=== PATIENT | female | born 1940 | race Caucasian/White ===

== ENCOUNTER → 2016-08-05 | Outpatient (CLI) | payer OTHER, MEDICARE ==
[2016-08-05 17:49] LABS: BLOOD UREA NITROGEN 13 mg/dl (7-18); BUN/CREATININE RATIO 19.3 (10-20); CALCIUM 9.5 mg/dl (8.5-10.1); CARBON DIOXIDE 26 mmol/L (21-32); CHLORIDE 105 mmol/L (98-107); CREATININE 0.68 mg/dl (0.60-1.20); GLUCOSE 105 mg/dl (70-99); POTASSIUM 4.1 mmol/L (3.5-5.1); SODIUM 140 mmol/L (136-145)
[2016-08-05 17:52] LABS: CHOLESTEROL 284 mg/dl (0-200); CHOLESTEROL/HDL RATIO 4.3; HDL CHOLESTEROL 66 mg/dl; LDL CHOLESTEROL CALCULATED 189 mg/dl; TRIGLYCERIDES 144 mg/dl (0-150); VERY LOW DENSITY LIPOPROT CALC 29 mg/dl
== END | disposition home or self-care (01) ==
LOC: C.LABBFT 13:31
PROVIDERS: ATTEND Internal Medicine
DX: R60.0 Localized edema (principal); E78.5 Hyperlipidemia, unspecified

== ENCOUNTER → 2016-08-19 | Outpatient (CLI) | payer OTHER, MEDICARE ==
[2016-08-19 17:34] LABS: BASO % 0.9 %; BASO ABS # 0.05 K/uL (0-0.2); COMPLETE YES; EOS % 3.7 %; HEMATOCRIT 40.6 % (37-47); IG% 0.4 %; LYMPH % 28.2 %; LYMPH ABS # 1.61 K/uL (1.2-3.4); MEAN CELL VOLUME 84.1 fL (80-100); MEAN CORPUSCULAR HEMOGLOBIN 29.4 pg (25-34); MEAN PLATELET VOLUME 11.1 fL (7.4-10.4); MONO % 8.8 %; PLATELET COUNT 186 K/uL (130-400); RED BLOOD COUNT 4.83 M/uL (4.2-5.4)
[2016-08-19 17:49] LABS: ALT/SGPT 27 U/L (12-78); AST/SGOT 14 U/L (15-37); BLOOD UREA NITROGEN 16 mg/dl (7-18); BUN/CREATININE RATIO 24.5 (10-20); CALCIUM 9.2 mg/dl (8.5-10.1); CARBON DIOXIDE 29 mmol/L (21-32); CHLORIDE 105 mmol/L (98-107); CREATININE 0.65 mg/dl (0.60-1.20); GLUCOSE 95 mg/dl (70-99); SODIUM 140 mmol/L (136-145)
[2016-08-19 18:00] LABS: ALB/GLOB RATIO 1.3 (0.9-2); ALKALINE PHOSPHATASE 65 U/L (45-117)
[2016-08-20 06:03] LABS: ESTIMATED AVERAGE GLUCOSE 114 mg/dl; HA1C FLAG Normal (Normal)
== END | disposition home or self-care (01) ==
LOC: C.LABBFT 10:32
PROVIDERS: ATTEND Internal Medicine
DX: M25.50 Pain in unspecified joint (principal); R73.09 Other abnormal glucose

== ENCOUNTER → 2016-12-28 | Outpatient (CLI) | payer OTHER, MEDICARE ==
[2016-12-28 17:46] LABS: CHOLESTEROL/HDL RATIO 2.5
== END | disposition home or self-care (01) ==
LOC: C.LABBFT 11:42
PROVIDERS: ATTEND Physician Assistant Medical
DX: E78.5 Hyperlipidemia, unspecified (principal)

== ENCOUNTER 2017-05-16 11:32 | Emergency (ER) | payer OTHER, MEDICARE ==
[~2017-05-16] VITALS: Ht 162.6 cm; Wt 64.0 kg
[~2017-05-16 11:32] MED LIST: CALC600T9 PO; CYAN100020 PO; GARL500C5 PO; GLUC1CAP35 PO; HERBAL LAXATIVE PO; LACTCAP3 PO; MAGN400T6 PO; MULT-506 PO; OMEG10007 PO; POTASSIUM PO; SIME1CAP28 PO; TRAZ100T29 PO; VITA200C5 PO; ZNTT/150 PO; [UNRECOGNIZED DRUG - CODE] PO; [UNRECOGNIZED DRUG - CODE] PO; herbal laxative PO
[2017-05-16 11:36] VITALS: TEMP 36.4; Ht 162.6 cm; Wt 64.0 kg
[2017-05-16 12:10] LABS: BASO % 0.9 %; BASO ABS # 0.05 K/uL (0-0.2); COMPLETE YES; EOS % 2.9 %; HEMATOCRIT 42.4 % (37-47); IG% 0.2 %; LYMPH % 26.4 %; LYMPH ABS # 1.53 K/uL (1.2-3.4); MEAN CELL VOLUME 85.7 fL (80-100); MEAN CORPUSCULAR HEMOGLOBIN 29.3 pg (25-34); MEAN CORPUSCULAR HGB CONC 34.2 g/dl (32-36); MEAN PLATELET VOLUME 10.4 fL (7.4-10.4); NEUT % 60.6 %; PLATELET COUNT 189 K/uL (130-400); RED BLOOD COUNT 4.95 M/uL (4.2-5.4)
[2017-05-16 12:18] LABS: PROTHROMBIN TIME (PATIENT) 10.5 SECONDS (9.0-12.0)
[2017-05-16 12:29] LABS: BLOOD UREA NITROGEN 15 mg/dl (7-18); CALCIUM 9.8 mg/dl (8.5-10.1); CARBON DIOXIDE 28 mmol/L (21-32); CHLORIDE 105 mmol/L (98-107); GLUCOSE 99 mg/dl (70-99); POTASSIUM 3.9 mmol/L (3.5-5.1); SODIUM 140 mmol/L (136-145)
[2017-05-16] MEDS ORDERED: HERBAL LAXATIVE PO ×2 (12:32→12:41)
[2017-05-16] MEDS ORDERED: HYDR12.56 PO (12:32)
[2017-05-16] MEDS ORDERED: VITA1TAB7 PO (12:41)
[2017-05-16] MEDS ORDERED: TRAZ100T29 PO (12:41)
[2017-05-16] MEDS ORDERED: OMEG120013 PO (12:41)
[2017-05-16] MEDS ORDERED: LACTTAB7 PO (12:41)
[2017-05-16] MEDS ORDERED: MULT-506 PO (12:41)
[2017-05-16] MEDS ORDERED: ASCO500T3 PO (12:41)
[2017-05-16] MEDS ORDERED: MAGN400T6 PO (12:41)
[2017-05-16] MEDS ORDERED: POTA99TA PO (12:41)
[2017-05-16] MEDS ORDERED: GARL500T PO (12:41)
[2017-05-16] MEDS ORDERED: GLUC1CAP35 PEG (12:41)
[2017-05-16] MEDS ORDERED: CYAN10005 PO (12:41)
[2017-05-16] MEDS ORDERED: CHLO4TAB70 PO (12:41)
[2017-05-16] MEDS ORDERED: ZNTT/150 PO (12:41)
[2017-05-16] MEDS ORDERED: CALC-20 PO (12:41)
[2017-05-16] MEDS ORDERED: [UNRECOGNIZED DRUG - OTHER] PO (12:46)
[2017-05-16] MEDS ORDERED: ALUM-30 PO (12:46)
[2017-05-16] MEDS ORDERED: ASPI-390 PO (12:46)
[2017-05-16] MEDS ORDERED: SIME1CAP28 PO (12:46)
[2017-05-16] MEDS ORDERED: MELA5TAB19 PO (12:46)
[2017-05-16] MEDS ORDERED: CALC500C3 PO (12:46)
--- NOTE | 2017-05-16 14:25 | DIAGNOSTIC IMAGING REPORT ---
R VENOUS DOPP LOWER EXT UNILAT HISTORY: 77 years-old Female swelling rle acute swelling of the right lower extremity COMPARISON: None available TECHNIQUE: Multiple real-time sonographic images of the right lower extremity deep venous structures were obtained assessing grayscale appearance, color and spectral flow FINDINGS: There is normal flow, compressibility, augmentation and phasicity of the right lower extremity deep venous system. Incidental note is made of prominent lymph nodes within the right inguinal region measuring up to 10 mm in short axis, likely physiologic however nonspecific. IMPRESSION: No sonographic evidence of deep venous thrombosis. The above report was generated using voice recognition software. It may contain grammatical, syntax or spelling errors. Electronically signed by: Roberto Goldsmith M.D. 05/16/2017 2:23 PM Dictated Date/Time: 05/16/2017 2:22 PM
[2017-05-16 15:24] LABS: ALKALINE PHOSPHATASE 85 U/L (45-117); ALT/SGPT 41 U/L (12-78); AST/SGOT 35 U/L (15-37)
[2017-05-16] MEDS ORDERED: CEFTRIAXONE SOD INJ 1 GM ADDVIAL IV STA (16:18)
--- NOTE | 2017-05-16 16:21 | DIAGNOSTIC IMAGING REPORT ---
ANKLE BRACHIAL INDEX LIMITED CLINICAL HISTORY: 77 years-old Female presenting with rle swelling and erythema . TECHNIQUE: Ankle brachial indices were obtained. COMPARISON: None. FINDINGS: Brachial: Right: 156 mmHg. Left: 168 mmHg. Ankle (posterior tibial): Right: 156 mmHg. Left: 176 mmHg. Ankle (dorsalis pedis): Right: 158 mmHg. Left: 176 mmHg. Ankle/brachial index: Right: 0.93-0.94, Left: 1.0-1.05. Reference ranges: Normal FEMI 1.0-1.4; 0.9-0.99 borderline; less than 0.9 abnormal. IMPRESSION: Normal left ankle-brachial index. Borderline low right ankle-brachial index. Electronically signed by: Pedro Luis Owusu M.D. 05/16/2017 4:20 PM Dictated Date/Time: 05/16/2017 4:18 PM
[2017-05-16] MEDS ORDERED: OPTIRAY 320 IV PRN (16:30)
--- NOTE | 2017-05-16 17:02 | DIAGNOSTIC IMAGING REPORT ---
ABD/PELVIS IV CONTRAST ONLY CLINICAL HISTORY: 77 years-old Female presenting with swelling in RLE looking at venous system/phase please, right leg swelling and redness down to the knee began on Tuesday, history of recent spider bite . TECHNIQUE: Multidetector CT of the abdomen and pelvis was performed after the administration of intravenous contrast. IV contrast: 115 mL of Optiray 320. A dose lowering technique was used consistent with the principles of ALARA (as low as reasonably achievable). COMPARISON: 08/24/2007. CT DOSE (mGy.cm): The estimated cumulative dose is 287.65 mGy.cm. FINDINGS: Cigar Machine Feeder topogram: Unremarkable. Lung bases: Calcified granuloma in the lingula unchanged. Dependent groundglass and reticular opacities in a subpleural distribution at the lung bases, right greater than left increased from prior exam. Stable solid 2 mm nodule in the right middle lobe, unchanged since 2007. Normal heart size. No pericardial or pleural effusion. Liver: Normal morphology. Subcentimeter hypodensity in the left hepatic lobe too small to characterize but likely cyst or hamartoma. Patent hepatic vasculature. Biliary: No intrahepatic or extrahepatic biliary ductal dilatation. Normal gallbladder. Pancreas: Normal. Spleen: Multiple calcified granulomas in the spleen likely indicate prior granulomatous infection. Adrenal glands: Normal. Kidneys and ureters: Normal excretion bilaterally. No hydronephrosis. Well-defined hypodensity in the left kidney likely simple cysts. Bladder: Normal noncontrast appearance. Pelvic organs: Uterus surgically absent. No adnexal masses. Bowel: Limited diverticulosis of the sigmoid colon. Mild stool burden. Mild gaseous distention of small bowel without evidence of wall thickening or convincing transition point suggest bowel obstruction. Small bowel distention measures up to 2.9 cm (series 3 image 255). Distal ileum is decompressed. Dilated small bowel taper smoothly at both the upstream and downstream portions of the distended segments. Peritoneal cavity: No free fluid or intraperitoneal gas. Lymph nodes: No enlarged lymph nodes in the abdomen or pelvis. Vasculature: Atherosclerosis of the normal caliber abdominal aorta. IVC patent. Iliac veins patent bilaterally. Abdominal wall: Minimal asymmetric subcutaneous infiltration in the proximal right thigh comparison to the left. Musculoskeletal: Degenerative changes of the pubic symphysis and spine. IMPRESSION: 1. Patent vasculature without evidence of a venous thrombosis to the level of the common femoral veins. 2. Small bowel distention without convincing evidence of an obstruction. This could suggest ileus. 3. Dependent opacities at the lung bases could represent atelectasis or chronic aspiration among other etiologies. Electronically signed by: Pedro Luis Owusu M.D. 05/16/2017 5:01 PM Dictated Date/Time: 05/16/2017 4:51 PM
[2017-05-16] MEDS ORDERED: CEPH500C PO (17:23)
[2017-05-16 17:47] VITALS: BP 151/73; PULSE 67; O2SAT 95
--- NOTE | 2017-05-16 17:54 | EMERGENCY ROOM VISIT NOTE ---
History Report prepared by Shanta: Duy Keller Under the Supervision of: Dr. Earnest Ramirez D.O. First contact with patient: 11:38 Chief Complaint: LEG PAIN,LEG INJURY Stated Complaint: SWOLLEN LEG, FROM KNEE DOWN History of Present Illness The patient is a 77 year old female who presents to the Emergency Room with complaints of right leg swelling that began two days ago. This has never happened to her before. About 1 month ago, she had some swelling in a small area on her right osorio that developed redness before resolving. She has a history of right hip and knee problems for which she receives injections. Pt denies headache, change in vision, fevers, chest pain, shortness of breath, nausea, vomiting, diarrhea, leg pain, pain with urination, weakness, numbness, tingling, hematochezia, and melena. Patient denies swelling of calves, recent trips, history of immobilization or recent surgery, prior history of DVT, hemoptysis, history of malignancy, history of smoking, or control/ estrogen use. Source of History: patient Onset: 2 days ago Position: leg (right) Symptom Intensity: moderate Quality: other (Swelling) Timing: constant Associated Symptoms: No fevers, No chest pain, No SOB, No nausea, No vomiting, No abdominal pain, No melena, No diarrhea, No urinary symptoms Note: She denies any pain to her right leg. Review of Systems See HPI for pertinent positives & negatives. A total of 10 systems reviewed and were otherwise negative. Past Medical & Surgical Medical Problems: (1) GERD (gastroesophageal reflux disease) Family History Omitted secondary to the patient's age. Social History Smoking Status: Never Smoker Smokeless Tobacco Use: No Drug Use: none Occupation Status: retired Current/Historical Medications Scheduled Ascorbic Acid (Vitamin C), 500 MG PO DAILY Calcium Carbonate-Vitamin D (Calcium 600 + D), 1 TAB PO HS Cephalexin Monohydrate (Keflex), 500 MG PO TID Chlorpheniramine Maleate (Chlorpheniramine Maleate), 4 MG PO BID Cyanocobalamin (Vitamin B-12), 1,000 MCG PO DAILY Garlic (Garlic), 500 MG PO QPM Juuujobeowi-Twhapipsdcz-Bvr C- (Glucosamine Chondroitin), 1 CAP PEG QPM Lactobacillus (Acidophilus), 1 TAB PO QAM Magnesium Oxide (Mag-Ox), 400 MG PO HS Multivitamin (Multivitamin), 1 TAB PO DAILY [place]anna-3 Fatty Acids (Fish Oil), 1,200 MG PO QPM Potassium (Potassium), 99 MG PO QPM Ranitidine HCl (Zantac), 150 MG PO BID Vitamin E (Vitamin E), 200 UNITS PO BID [Herbal Laxative], 1 TAB PO DAILY [Herbal Laxative], 2 TABS PO HS Scheduled PRN Alum & Mag Hydrox-Simethicone (Mylanta), 1 DOSE PO DAILY PRN for GI Upset Ytspxjo-Gbayxjkswjlyc-Lvgtdgkt (Excedrin Migraine), 1 TAB PO UD PRN for Migraine Calcium Carbonate (Tums), 500 MG PO UD PRN for Heartburn Hydrochlorothiazide (Hctz), 12.5 MG PO DAILY PRN for EDEMA Melatonin (Melatonin), 5 MG PO HS PRN for Sleep Simethicone (Simethicone), 125 MG PO UD PRN for GAS Trazodone Hcl (Trazodone), 100 MG PO HS PRN for Sleep [Herbal Water Tablet], 1 DOSE PO UD PRN for UNDECIDED Allergies Coded Allergies: No Known Allergies (Unverified , 05/16/17) Physical Exam Vital Signs Date Time Temp Pulse Resp B/P (MAP) Pulse Ox O2 Delivery O2 Flow Rate FiO2 05/16/17 17:47 67 18 151/73 95 05/16/17 17:30 67 18 151/73 95 Room Air 05/16/17 15:29 62 18 167/72 97 Room Air 05/16/17 13:22 62 18 161/80 98 Room Air 05/16/17 11:36 36.4 72 20 172/95 95 Room Air Physical Exam GENERAL: Sitting up in bed, alert, well appearing, well nourished, no distress, non-toxic EYE EXAM: normal conjunctiva. OROPHARYNX: no exudate, no erythema, lips, buccal mucosa, and tongue normal and mucous membranes are moist NECK: supple, no nuchal rigidity, no adenopathy, non-tender LUNGS: Clear to auscultation. Normal chest wall mechanics HEART: no murmurs, S1 normal and S2 normal ABDOMEN: abdomen soft, non-tender, normo-active bowel sounds, no masses, no rebound or guarding. BACK: Back is symmetrical on inspection and there is no deformity, no midline tenderness, no CVA tenderness. UPPER EXTREMITIES: upper extremities are grossly normal. LOWER EXTREMITIES: Significant swelling and erythema to the RLE. DP 2/4. Gross sensation intact. Full ROM of all joints NEURO EXAM: Normal sensorium. Medical Decision & Procedures ER Provider Diagnostic Interpretation: Radiology results as stated below per my review and the radiologist's interpretation: R VENOUS DOPP LOWER EXT UNILAT HISTORY: 77 years-old Female swelling rle acute swelling of the right lower extremity COMPARISON: None available TECHNIQUE: Multiple real-time sonographic images of the right lower extremity deep venous structures were obtained assessing grayscale appearance, color and spectral flow FINDINGS: There is normal flow, compressibility, augmentation and phasicity of the right lower extremity deep venous system. Incidental note is made of prominent lymph nodes within the right inguinal region measuring up to 10 mm in short axis, likely physiologic however nonspecific. IMPRESSION: No sonographic evidence of deep venous thrombosis. The above report was generated using voice recognition software. It may contain grammatical, syntax or spelling errors. Electronically signed by: Roberto Goldsmith M.D. 05/16/2017 2:23 PM Dictated Date/Time: 05/16/2017 2:22 PM ANKLE BRACHIAL INDEX LIMITED CLINICAL HISTORY: 77 years-old Female presenting with rle swelling and erythema . TECHNIQUE: Ankle brachial indices were obtained. COMPARISON: None. FINDINGS: Brachial: Right: 156 mmHg. Left: 168 mmHg. Ankle (posterior tibial): Right: 156 mmHg. Left: 176 mmHg. Ankle (dorsalis pedis): Right: 158 mmHg. Left: 176 mmHg. Ankle/brachial index: Right: 0.93-0.94, Left: 1.0-1.05. Reference ranges: Normal FMEI 1.0-1.4; 0.9-0.99 borderline; less than 0.9 abnormal. IMPRESSION: Normal left ankle-brachial index. Borderline low right ankle-brachial index. Electronically signed by: Pedro Luis Owusu M.D. 05/16/2017 4:20 PM Dictated Date/Time: 05/16/2017 4:18 PM ABD/PELVIS IV CONTRAST ONLY CLINICAL HISTORY: 77 years-old Female presenting with swelling in RLE looking at venous system/phase please, right leg swelling and redness down to the knee began on Tuesday, history of recent spider bite . TECHNIQUE: Multidetector CT of the abdomen and pelvis was performed after the administration of intravenous contrast. IV contrast: 115 mL of Optiray 320. A dose lowering technique was used consistent with the principles of ALARA (as low as reasonably achievable). COMPARISON: 08/24/2007. CT DOSE (mGy.cm): The estimated cumulative dose is 287.65 mGy.cm. FINDINGS: [employer] Pip[employer] Supervisor topogram: Unremarkable. Lung bases: Calcified granuloma in the lingula unchanged. Dependent groundglass and reticular opacities in a subpleural distribution at the lung bases, right greater than left increased from prior exam. Stable solid 2 mm nodule in the right middle lobe, unchanged since 2007. Normal heart size. No pericardial or pleural effusion. Liver: Normal morphology. Subcentimeter hypodensity in the left hepatic lobe too small to characterize but likely cyst or hamartoma. Patent hepatic vasculature. Biliary: No intrahepatic or extrahepatic biliary ductal dilatation. Normal gallbladder. Pancreas: Normal. Spleen: Multiple calcified granulomas in the spleen likely indicate prior granulomatous infection. Adrenal glands: Normal. Kidneys and ureters: Normal excretion bilaterally. No hydronephrosis. Well-defined hypodensity in the left kidney likely simple cysts. Bladder: Normal noncontrast appearance. Pelvic organs: Uterus surgically absent. No adnexal masses. Bowel: Limited diverticulosis of the sigmoid colon. Mild stool burden. Mild gaseous distention of small bowel without evidence of wall thickening or convincing transition point suggest bowel obstruction. Small bowel distention measures up to 2.9 cm (series 3 image 255). Distal ileum is decompressed. Dilated small bowel taper smoothly at both the upstream and downstream portions of the distended segments. Peritoneal cavity: No free fluid or intraperitoneal gas. Lymph nodes: No enlarged lymph nodes in the abdomen or pelvis. Vasculature: Atherosclerosis of the normal caliber abdominal aorta. IVC patent. Iliac veins patent bilaterally. Abdominal wall: Minimal asymmetric subcutaneous infiltration in the proximal right thigh comparison to the left. Musculoskeletal: Degenerative changes of the pubic symphysis and spine. IMPRESSION: 1. Patent vasculature without evidence of a venous thrombosis to the level of the common femoral veins. 2. Small bowel distention without convincing evidence of an obstruction. This could suggest ileus. 3. Dependent opacities at the lung bases could represent atelectasis or chronic aspiration among other etiologies. Electronically signed by: Pedro Luis Owusu M.D. 05/16/2017 5:01 PM Dictated Date/Time: 05/16/2017 4:51 PM Laboratory Results 05/16/17 11:54 Red Blood Count 4.95, Mean Corpuscular Volume 85.7, Mean Corpuscular Hemoglobin 29.3, Mean Corpuscular Hemoglobin Concent 34.2, Mean Platelet Volume 10.4, Neutrophils (%) (Auto) 60.6, Lymphocytes (%) (Auto) 26.4, Monocytes (%) (Auto) 9.0, Eosinophils (%) (Auto) 2.9, Basophils (%) (Auto) 0.9, Neutrophils # (Auto) 3.52, Lymphocytes # (Auto) 1.53, Monocytes # (Auto) 0.52, Eosinophils # (Auto) 0.17, Basophils # (Auto) 0.05 05/16/17 11:54 Test 05/16/17 11:54 White Blood Count 5.80 K/uL (4.8-10.8) Red Blood Count 4.95 M/uL (4.2-5.4) Hemoglobin 14.5 g/dL (12.0-16.0) Hematocrit 42.4 % (37-47) Mean Corpuscular Volume 85.7 fL (80-100) Mean Corpuscular Hemoglobin 29.3 pg (25-34) Mean Corpuscular Hemoglobin Concent 34.2 g/dl (32-36) Platelet Count 189 K/uL (130-400) Mean Platelet Volume 10.4 fL (7.4-10.4) Neutrophils (%) (Auto) 60.6 % Lymphocytes (%) (Auto) 26.4 % Monocytes (%) (Auto) 9.0 % Eosinophils (%) (Auto) 2.9 % Basophils (%) (Auto) 0.9 % Neutrophils # (Auto) 3.52 K/uL (1.4-6.5) Lymphocytes # (Auto) 1.53 K/uL (1.2-3.4) Monocytes # (Auto) 0.52 K/uL (0.11-0.59) Eosinophils # (Auto) 0.17 K/uL (0-0.5) Basophils # (Auto) 0.05 K/uL (0-0.2) RDW Standard Deviation 48.8 fL (36.4-46.3) RDW Coefficient of Variation 15.4 % (11.5-14.5) Immature Granulocyte % (Auto) 0.2 % Immature Granulocyte # (Auto) 0.01 K/uL (0.00-0.02) Prothrombin Time 10.5 SECONDS (9.0-12.0) Prothromb Time International Ratio 1.0 (0.9-1.1) Anion Gap 7.0 mmol/L (3-11) Est Creatinine Clear Calc Drug Dose 60.0 ml/min Estimated GFR () 98.2 Estimated GFR (Non- 84.8 BUN/Creatinine Ratio 22.0 (10-20) Calcium Level 9.8 mg/dl (8.5-10.1) Total Bilirubin 0.4 mg/dl (0.2-1) Direct Bilirubin < 0.1 mg/dl (0-0.2) Aspartate Amino Transf (AST/SGOT) 35 U/L (15-37) Alanine Aminotransferase (ALT/SGPT) 41 U/L (12-78) Alkaline Phosphatase 85 U/L (45-117) Troponin I < 0.015 ng/ml (0-0.045) Total Protein 7.5 gm/dl (6.4-8.2) Albumin 3.6 gm/dl (3.4-5.0) Laboratory results per my review. Medications Administered Medications (Trade) Dose Ordered Sig/Sasha Route Start Time Stop Time Status Last Admin Dose Admin Ceftriaxone Sodium (Rocephin Inj) 1 gm NOW STAT IV 05/16/17 16:18 05/16/17 16:20 DC 05/16/17 16:51 1 GM ED Course ED COURSE: Vital signs were reviewed and showed hypertension. The patients medical record was reviewed The above diagnostic studies were performed and reviewed. ED treatments and interventions as stated above. 1138: The patient was evaluated in room C12B. A complete history and physical examination was performed. 1218: I attempted to reevaluate the patient at this time. She was at US. 1445: The patient's DP, PT, popliteal, and femoral pulses are all 2/4 by Doppler. 1618: Ordered Rocephin Inj 1 gm IV 1730: Upon reevaluation, the patient is resting. I discussed my findings with the patient and she understands and agrees with the treatment plan. Care management will set up an appoint for her with her PCP. Based on the patients age, coexisting illnesses, exam and lab findings the decision to treat as an outpatient was made. The patient remained stable while under my care. The patient appeared well at the time of discharge. Medical Decision Differential diagnosis: Etiologies such as DVT, musculoskeletal, infection, joint effusion, trauma, lymphedema, idiopathic, CHF, as well as others were entertained.. Patient is a 77-year-old female who presents to ER for swelling of the right lower extremity associated with mild erythema. Right leg is larger than left. Pulses are intact DP/PT/popliteal/femoral. Duplex was negative. FEMI greater than 90 on the right. CBC all BMP, LFTs, bilirubin and troponin was negative. INR was normal. With the swelling I did perform a CT of the abdomen or concern for possible iliac clot but this was negative as well. Then unremarkable venous and arterial studies placed patient on Keflex after a dose of IV Rocephin and discharged her to follow-up with PCP in 24-48 hours. Care management will assist concerning his appointment up. She has no chest pain or shortness of breath. Discussed with Pt concerning signs and symptoms to watch out for. Pt was instructed to follow up with their PCP and discussed with the patient their option to return to the ED at anytime for persistent or worsening symptoms. The appropriate anticipatory guidance and out-patient management, including indications for return to the emergency department, were explained at length to the patient and understood. Medication Reconcilliation Current Medication List: was personally reviewed by me Blood Pressure Screening Patient's blood pressure: Elevated blood pressure Blood pressure disposition: Elevated BP felt to be situational Impression Primary Impression: Leg swelling Additional Impression: Cellulitis Scribe Attestation The scribe's documentation has been prepared under my direction and personally reviewed by me in its entirety. I confirm that the note above accurately reflects all work, treatment, procedures, and medical decision making performed by me. Departure Information Dispostion Home / Self-Care Prescriptions Cephalexin Monohydrate (Keflex) 500 Mg Cap 500 MG PO TID for 7 Days, CAP Prov: Earnest Ramirez, 05/16/17 Referrals Shin Kearney M.D. Forms HOME CARE DOCUMENTATION FORM, IMPORTANT VISIT INFORMATION Patient Instructions Cellulitis - [facility] [place], ED Leg Swelling Unilateral, My [facility] [address] Additional Instructions Please follow up with your primary care doctor with in the next 24 hours. Any worsening of your symptoms, please return to the ED immediately. This includes any fevers greater than 100.4, worsening pain, chest pain, shortness breath, persistent nausea, vomiting, unable to eat or drink, or any other concerning signs or symptoms from your standpoint. Please take antibiotics as prescribed. Problem Qualifiers Additional Impression: Cellulitis Site of cellulitis: extremity Site of cellulitis of extremity: lower extremity Laterality: unspecified laterality Qualified Codes: L03.119 - Cellulitis of unspecified part of limb
== END 2017-05-16 17:47 | disposition home or self-care (01) ==
LOC: C.EDB 11:33 → C.EDC 17:47
DX: R22.42 Localized swelling, mass and lump, left lower limb (principal); L03.90 Cellulitis, unspecified; K21.9 Gastro-esophageal reflux disease without esophagitis; Z79.899 Other long term (current) drug therapy

== ENCOUNTER → 2017-05-18 | Outpatient (CLI) | payer OTHER, MEDICARE ==
[~2017-05-18] MED LIST changes: +ALUM-30 PO; +ASCO500T3 PO; +ASPI-390 PO; +CALC-20 PO; +CALC500C3 PO; -CALC600T9 PO; +CEPH500C PO; +CHLO4TAB70 PO; -CYAN100020 PO; +CYAN10005 PO; -GARL500C5 PO; +GARL500T PO; +GLUC1CAP35 PEG; -GLUC1CAP35 PO; +HYDR12.56 PO; -LACTCAP3 PO; +LACTTAB7 PO; +MELA5TAB19 PO; -OMEG10007 PO; +OMEG120013 PO; +POTA99TA PO; -POTASSIUM PO; +VITA1TAB7 PO; -VITA200C5 PO; -[UNRECOGNIZED DRUG - CODE] PO; -[UNRECOGNIZED DRUG - CODE] PO; +[UNRECOGNIZED DRUG - OTHER] PO; -herbal laxative PO
[2017-05-18 13:09] LABS: LYME DISEASE AB IGG POS (NEG)
[2017-05-18 13:10] LABS: LYME DISEASE AB IGM EQUIVOCAL (NEG)
== END | disposition home or self-care (01) ==
LOC: C.LABBFT 08:59
PROVIDERS: ATTEND Physician Assistant Medical
DX: L03.90 Cellulitis, unspecified (principal)

== ENCOUNTER 2021-12-22 01:14 | Observation (INO) ==
[2021-12-22] MEDS ORDERED: SODIUM CHLORIDE 0.9% 1000ML 1,000 ML IV SCH (01:30)
--- NOTE | 2021-12-22 01:53 | Emergency Department Note ---
History of Present Illness General Chief complaint: Dehydration Stated complaint: DEHYDRATED Time Seen by Provider: 12/22/21 01:26 History of Present Illness 81-year-old female presents emergency department with 1 day history of worsening leg cramps and decreased p.o. intake. Of note the patient started gabapentin last week. Patient states leg cramps decreased p.o. intake nausea. Patient states that she stopped taking the gabapentin due to the fact that she was getting all of the side effects listed on the sheet. Patient is with family denies any specific abdominal pain denies fever denies cough denies congestion. There are no other mitigating or alleviating factors. Denies any diarrhea Home Medications Medication Instructions Recorded Confirmed Type Lactobacillus acidophilus 1 tab PO QDD tab 04/12/18 12/22/21 History (Acidophilus) ascorbic acid (vitamin C) 500 mg 500 mg PO QDD 04/12/18 12/22/21 History tablet chlorpheniramine maleate 4 mg 4 mg PO TID tab 04/12/18 12/22/21 History tablet glucosamine-chondroitin 500 mg-400 1 cap PO QDD 04/12/18 12/22/21 History mg capsule magnesium oxide 400 mg (241.3 mg 400 mg PO HS tab 04/12/18 12/22/21 History magnesium) tablet mecobalamin (vitamin B12) 1,000 1,000 mcg PO QAM 04/12/18 12/22/21 History mcg disintegrating tablet,sublingual melatonin 5 mg tablet 10 mg PO HS 04/12/18 12/22/21 History multivitamin 1 tab PO QAM 04/12/18 12/22/21 History omega-3 fatty acids 1,250 mg 1,250 mg PO QDD 04/12/18 12/22/21 History capsule potassium 99 mg tablet 99 mg PO QDD 04/12/18 12/22/21 History simethicone 125 mg capsule 125 mg PO QDD 04/12/18 12/22/21 History vitamin E mixed 200 unit tablet 200 units PO QDD tab 04/12/18 12/22/21 History hydrochlorothiazide 12.5 mg capsule 12.5 mg PO DAILY PRN #30 cap 03/05/20 12/22/21 Rx naproxen 250 mg tablet 250 mg PO BIDM PRN 04/20/21 12/22/21 History Cranberry W/Vitamin C 1 tab PO QAM 12/22/21 12/22/21 History Herbal Water Pill 1 tab PO DAILY PRN 12/22/21 12/22/21 History acetaminophen 325 mg tablet 650 mg PO DIRECTED PRN 12/22/21 12/22/21 History (Tylenol) aluminum-mag hydroxide-simethicone 10 ml PO DIRECTED PRN 12/22/21 12/22/21 History 200 mg-200 mg-20 mg/5 mL oral susp [id number]-[id number] 250 1 tab PO DIRECTED PRN 12/22/21 12/22/21 History mg-250 mg-65 mg tablet (Excedrin Migraine) buspirone 10 mg tablet 10 mg PO BIDM 12/22/21 12/22/21 History calcium carbonate 300 mg (750 mg) 300 mg PO DIRECTED PRN 12/22/21 12/22/21 History chewable tablet (Tums) calcium carbonate 470 mg calcium 470 mg PO DIRECTED PRN 12/22/21 12/22/21 History (1,177 mg) chewable tablet herbal drugs 1 tab PO BIDM 12/22/21 12/22/21 History ibuprofen 200 mg tablet 200 mg PO DIRECTED PRN 12/22/21 12/22/21 History ibuprofen 200 mg tablet 200 mg PO BIDM 12/22/21 12/22/21 History omeprazole 20 mg capsule,delayed 20 mg PO QAM 12/22/21 12/22/21 History release oxymetazoline 0.05 % nasal spray 2 spray INTRANASAL AMHS 12/22/21 12/22/21 History (Afrin (oxymetazoline)) rosuvastatin 5 mg tablet 5 mg PO QAM 12/22/21 12/22/21 History trazodone 100 mg tablet 100 mg PO HS PRN 12/22/21 12/22/21 History Allergies Allergy/AdvReac Type Severity Reaction Status Date / Time No Known Allergies Allergy Verified 12/22/21 01:51 Past Med/Surg History Medical History Carpal tunnel syndrome of left wrist Dyslipidemia GERD (gastroesophageal reflux disease) Greater trochanteric bursitis of left hip History of gastric ulcer Hypertension Lumbar radicular pain Sacroiliitis Spinal stenosis of lumbar region Surgical History H/O: hysterectomy History of adenoidectomy History of tonsillectomy Family History Mother Breast cancer Aunt Breast cancer Brother Stroke Grandfather No problems noted. Grandfather Lung cancer Other Diabetes Denies family history of Ovarian cancer Prostate cancer Myocardial infarction Colorectal cancer Social History Smoking Status: Never smoker Second Hand Exposure: No; Hx Alcohol Use: No Hx Substance Use: No Preferred Language: Armenian Communication Ability: Effective Visual Impairment: Limited Hearing Ability: Use of Hearing Aid marital status: Current Living Situation: Alone current occupational status: retired current occupation: used to work as secretary administrative assistant Feels Safe at Home: Yes Childhood Exposure to Second-Hand Smoke: Yes (father and grandfather) caffeine: Yes during the past year weight has: remained stable Dental Care, Regularly: Yes Physical Activity Frequency: Daily Seatbelt Use: always Sunscreen Use: Yes Review of Systems A total of 10 systems reviewed and were otherwise negative Constitutional: + fatigue; no fever Cardiovascular: no chest pain Musculoskeletal: + myalgia Physical Exam Vital Signs Vital Signs - 24 hr 12/22/21 01:18 12/22/21 01:40 12/22/21 01:45 Temperature 36.5 C Temperature Source Temporal Artery Scan Pulse Rate 86 81 Pulse Rate [Apical] 79 Pulse Rhythm Regular Regular Pulse Rhythm [Apical] Regular Pulse Strength Normal Respiratory Rate 20 16 17 Respiratory Effort / Characteristics Non-Labored Spontaneous Non-Labored Respiratory Depth Normal Normal Respiratory Pattern Regular Regular Blood Pressure 127/73 Blood Pressure [Left Arm] 103/67 Blood Pressure Mean 91 Blood Pressure Mean [Left Arm] 79 Blood Pressure Position Sitting Blood Pressure Position [Left Arm] Lying Pulse Oximetry 97 96 97 Oxygen Delivery Method Room Air Room Air Room Air Sepsis Recent Fever Within 48 Hours No Sepsis New/Unexplained Change in Mental Status N/A Sepsis Action Taken by Nursing No Action Required 12/22/21 03:31 Temperature Temperature Source Pulse Rate Pulse Rate [Apical] 73 Pulse Rhythm Pulse Rhythm [Apical] Regular Pulse Strength Respiratory Rate 28 H Respiratory Effort / Characteristics Non-Labored Respiratory Depth Normal Respiratory Pattern Regular Blood Pressure Blood Pressure [Left Arm] 118/66 Blood Pressure Mean Blood Pressure Mean [Left Arm] 83 Blood Pressure Position Blood Pressure Position [Left Arm] Lying Pulse Oximetry 97 Oxygen Delivery Method Room Air Sepsis Recent Fever Within 48 Hours Sepsis New/Unexplained Change in Mental Status Sepsis Action Taken by Nursing VITAL SIGNS - Vital signs and nursing notes were reviewed. GENERAL - no acute distress. Communicates well with provider and answers qu estions appropriately. SKIN - Without rashes. HEAD - NC/AT. EYES - PERRL with EOMI bilaterally. Sclera anicteric. Palpebral conjunctiva pink and moist with no injection noted. EARS - No deformities of external structures noted on gross examination bilaterally. NOSE - Midline and without cyanosis. No epistaxis or purulent drainage noted. Septum midline without deviation or septal hematoma noted. MOUTH/OROPHARYNX - Without perioral cyanosis. Buccal mucosa pink and moist NECK - Neck with FROM. LUNGS - Chest wall symmetric without accessory muscle use, intercostals retractions, or central cyanosis. Normal vesicular breath sounds CTA B/L. No wheezes, rales, or rhonchi appreciated. CARDIAC - RRR with S1/S2. No murmur, rubs, or gallops appreciated. ABDOMEN - Abdominal contour soft without pulsations or visible masses. BS normoactive all four quadrants. No tenderness, palpable masses, hepato splenomegaly, or ascites noted. EXTREMITIES - No clubbing or peripheral cyanosis. Trace b/l le edema; +5/5 strength noted in UE/LE bilaterally. NEUROLOGIC - Cranial nerves II through XII grossly intact. PSYCH - A&Ox3 and cooperates fully with examiner. Pt is very pleasant and interacts well with examiner. Course Reevaluation(s) Reevaluation #1: Patient is resting in no distress when I discussed the evaluation with the patient and family at bedside she stated that she was on doxycycline that st arted on December 18. Patient is a electrical assembly supervisor she has taken a lot of ticks off approximately 5-6 in the past few months. Time: 05:15 Reevaluation #2: Case discussed with the [facility] hospitalist for admission Time: 05:15 Administered Medications Azithromycin 500 mg/ Dextrose 255 mls @ 125 mls/hr IV ONE ONE Stop: 12/22/21 05:47 Last Admin: 12/22/21 04:14 Dose: 125 mls/hr Documented by: [id number] Discontinued Medications Atovaquone (Atovaquone 750 Mg/5 Ml [facility] [place] 750 mg PO NOW STA Stop: 12/22/21 03:46 Last Admin: 12/22/21 04:14 Dose: 750 mg Documented by: [id number] Sodium Chloride (Nss 1000ml) 1,000 mls @ 999 mls/hr IV .Q1H1M GALINA Stop: 12/22/21 02:30 Last Admin: 12/22/21 01:48 Dose: 999 mls/hr Documented by: [id number] Ioversol (Optiray 320 100ml) 100 ml IV ONCE ONE Stop: 12/22/21 03:13 Last Admin: 12/22/21 03:12 Dose: 93 ml Documented by: [id number] Potassium Chloride (Potassium Chloride 10 Meq Tabcr) 40 meq PO NOW STA Stop: 12/22/21 04:01 Last Admin: 12/22/21 04:14 Dose: 40 meq Documented by: [id number] Medical Decision Making Medical Records Attestation: I reviewed the patient's medical records. Home Medications Current Medication List: was personally reviewed by me Laboratory Data Attestation: I reviewed the patient's lab results. Result diagrams: 12/22/21 01:49 12/22/21 01:49 Lab Results 12/22/21 12/22/21 12/22/21 Range/Units 01:49 01:49 04:28 WBC 6.47 (4.8-10.8) K/uL RBC 4.29 (4.2-5.4) M/uL Hgb 12.7 (12.0-16.0) g/dL Hct 35.1 L (37-47) % MCV 81.8 (80-100) fL MCH 29.6 (25-34) pg MCHC 36.2 H (32-36) g/dL RDW Std Deviation 41.1 (36.4-46.3) fL RDW Coeff of Hilario 13.5 (11.5-14.5) % Plt Count 49 L (130-400) K/uL MPV 11.4 H (7.4-10.4) fL Immature Gran % (Auto) 0.3 % Neut % (Auto) 63.4 % Lymph % (Auto) 16.5 % Dukes % (Auto) 19.3 % Eos % (Auto) 0.0 % Baso % (Auto) 0.5 % Neut # (Auto) 4.10 (1.4-6.5) K/uL Lymph # (Auto) 1.07 L (1.2-3.4) K/uL Dukes # (Auto) 1.25 H (0.11-0.59) K/uL Eos # (Auto) 0.00 (0-0.5) K/uL Baso # (Auto) 0.03 (0-0.2) K/uL Immature Gran # (Auto) 0.02 (0.00-0.02) K/uL Platelet Estimate Decreased L (Normal) RBC Morphology Unremarkable Sodium 124 L (136-145) mmol/L Potassium 3.2 L (3.5-5.1) mmol/L Chloride 92 L (98-107) mmol/L Carbon Dioxide 21 (21-32) mmol/L Anion Gap 11 (3-11) BUN 10 (6-23) mg/dl Creatinine 0.53 L (0.6-1.2) mg/dl Est Cr Clr Drug Dosing 80.5 ml/min Est GFR ( Amer) 104.7 ml/min Est GFR (Non-Af Amer) 90.3 ml/min BUN/Creatinine Ratio 18.9 (10-20) Glucose 147 H (70-99(Fasting)) mg/dl Calcium 8.8 (8.5-10.1) mg/dl Magnesium 1.6 L (1.7-2.4) mg/dl Total Bilirubin 1.3 H (0.2-1.0) mg/dl AST 135 H (13-39) U/L ALT 150 H (7-52) U/L Alkaline Phosphatase 138 H (34-104) U/L Total Protein 6.4 (6.0-8.3) gm/dl Albumin 3.5 (3.4-5.0) gm/dl Globulin 2.9 (2.5-4.0) gm/dl Albumin/Globulin Ratio 1.2 (0.9-2) Urine Color Urine Appearance (Clear) Urine pH (4.5-7.5) Ur Specific [place] (1.000-1.030) Urine Protein (Negative) Urine Glucose (UA) (Negative) Urine Ketones (Negative) Urine Blood (Negative) Urine Nitrite (Negative) Urine Bilirubin (Negative) Urine Urobilinogen (Negative) Ur Leukocyte Esterase (Negative) Urine WBC (Auto) (0-5) /hpf Urine RBC (Auto) (0-4) /hpf U Hyaline Cast (Auto) (0-5) /lpf U Epithel Cells (Auto) (0-5) /lpf Urine Bacteria (Auto) (Negative) Ur Renal Epithelial Cell Anaplasma Smear See Comment Babesia Smear See Comment A SARS-CoV-2, RNA, NAAT NEGATIVE (NEGATIVE) 12/22/21 Range/Units Unknown WBC (4.8-10.8) K/uL RBC (4.2-5.4) M/uL Hgb (12.0-16.0) g/dL Hct (37-47) % MCV (80-100) fL MCH (25-34) pg MCHC (32-36) g/dL RDW Std Deviation (36.4-46.3) fL RDW Coeff of Hilario (11.5-14.5) % Plt Count (130-400) K/uL MPV (7.4-10.4) fL Immature Gran % (Auto) % Neut % (Auto) % Lymph % (Auto) % Dukes % (Auto) % Eos % (Auto) % Baso % (Auto) % Neut # (Auto) (1.4-6.5) K/uL Lymph # (Auto) (1.2-3.4) K/uL Dukes # (Auto) (0.11-0.59) K/uL Eos # (Auto) (0-0.5) K/uL Baso # (Auto) (0-0.2) K/uL Immature Gran # (Auto) (0.00-0.02) K/uL Platelet Estimate (Normal) RBC Morphology Sodium (136-145) mmol/L Potassium (3.5-5.1) mmol/L Chloride (98-107) mmol/L Carbon Dioxide (21-32) mmol/L Anion Gap (3-11) BUN (6-23) mg/dl Creatinine (0.6-1.2) mg/dl Est Cr Clr Drug Dosing ml/min Est GFR ( Amer) ml/min Est GFR (Non-Af Amer) ml/min BUN/Creatinine Ratio (10-20) Glucose (70-99(Fasting)) mg/dl Calcium (8.5-10.1) mg/dl Magnesium (1.7-2.4) mg/dl Total Bilirubin (0.2-1.0) mg/dl AST (13-39) U/L ALT (7-52) U/L Alkaline Phosphatase (34-104) U/L Total Protein (6.0-8.3) gm/dl Albumin (3.4-5.0) gm/dl Globulin (2.5-4.0) gm/dl Albumin/Globulin Ratio (0.9-2) Urine Color Dark Yellow Urine Appearance Clear (Clear) Urine pH 6.0 (4.5-7.5) Ur Specific [place] 1.024 (1.000-1.030) Urine Protein 1+ H (Negative) Urine Glucose (UA) Negative (Negative) Urine Ketones Negative (Negative) Urine Blood Negative (Negative) Urine Nitrite Negative (Negative) Urine Bilirubin Negative (Negative) Urine Urobilinogen Negative (Negative) Ur Leukocyte Esterase Trace H (Negative) Urine WBC (Auto) 1-5 (0-5) /hpf Urine RBC (Auto) 5-10 H (0-4) /hpf U Hyaline Cast (Auto) 10-30 H (0-5) /lpf U Epithel Cells (Auto) >30 H (0-5) /lpf Urine Bacteria (Auto) Negative (Negative) Ur Renal Epithelial Cell Not Reportable Anaplasma Smear Babesia Smear SARS-CoV-2, RNA, NAAT (NEGATIVE) Imaging Data Radiologist's Impression: CT ABDOMEN & PELVIS With Contrast: Prominence of the wall of the descending and sigmoid colon related may relate to nondistention or colitis. Diverticulosis is also noted. Nonspecific splenomegaly. Mild right pelviectasis. The remaining solid organs are within normal limits. No bowel obstruction. Normal appendix. No fracture. Radiologist: Lauren Hatfield MD 5:13 AM 10 days left MDM Narrative Medical decision making differential diagnosis dehydration, electrolyte abnormality, medication reaction. Plan is to check labs, hydrate the patient Impression & Plan Dehydration, Acute hypokalemia, Acute hyponatremia, Babesiosis Discharge Plan Visit Data Chief Complaint: Dehydration Stated Complaint: DEHYDRATED ED Provider: Can Todd Discharge Problem: Dehydration, Acute hypokalemia, Acute hyponatremia, Babesiosis Patient Disposition: Being Evaluated by Hospitalist Forms Stand Alone Forms: [facility] Prescriptions Prescriptions: No Action naproxen 250 mg tablet 250 mg PO BIDM PRN (Reason: Pain) RF: 0 multivitamin tablet 1 tab PO QAM RF: 0 chlorpheniramine maleate 4 mg tablet 4 mg PO TID RF: 0 simethicone 125 mg capsule 125 mg PO QDD RF: 0 potassium 99 mg tablet 99 mg PO QDD RF: 0 magnesium oxide 400 mg (241.3 mg magnesium) tablet 400 mg PO HS RF: 0 ascorbic acid (vitamin C) 500 mg tablet 500 mg PO QDD RF: 0 glucosamine-chondroitin 500-400 mg capsule 1 cap PO QDD RF: 0 Lactobacillus acidophilus [Acidophilus] tablet,chewable 1 tab PO QDD RF: 0 melatonin 5 mg tablet 10 mg PO HS RF: 0 omega-3 fatty acids 1,250 mg capsule 1,250 mg PO QDD RF: 0 vitamin E mixed 200 unit tablet 200 units PO QDD RF: 0 mecobalamin (vitamin B12) 1,000 mcg tablet,disintegrating 1,000 mcg PO QAM RF: 0 hydrochlorothiazide 12.5 mg capsule 12.5 mg PO DAILY PRN (Reason: edema) Qty: 30 RF: 5 ibuprofen 200 mg Tablet 200 mg PO BIDM RF: 0 Herbal Laxative Tablet 1 tab PO BIDM RF: 0 oxymetazoline [Afrin (oxymetazoline)] 0.05 % [place],Non-Aerosol 2 spray INTRANASAL AMHS RF: 0 Cranberry W/Vitamin C 1 tab PO QAM RF: 0 buspirone 10 mg tablet 10 mg PO BIDM RF: 0 omeprazole 20 mg capsule,delayed release(DR/EC) 20 mg PO QAM RF: 0 rosuvastatin 5 mg tablet 5 mg PO QAM RF: 0 acetaminophen [Tylenol] 325 mg Tablet 650 mg PO DIRECTED PRN (Reason: Pain) RF: 0 calcium carbonate [Tums] 300 mg (750 mg) Tablet,Chewable 300 mg PO DIRECTED PRN (Reason: UPSET STOMACH) RF: 0 trazodone 100 mg Tablet 100 mg PO HS PRN (Reason: Sleep) RF: 0 ibuprofen 200 mg Tablet 200 mg PO DIRECTED PRN (Reason: Pain) RF: 0 alum-mag hydroxide-simeth [Mylanta] 200-200-20 mg/5 mL Suspension 10 ml PO DIRECTED PRN (Reason: HEARTBURN/INDIGESTION) RF: 0 Excedrin Migraine 250-250-65 mg Tablet 1 tab PO DIRECTED PRN (Reason: Headache) RF: 0 Rolaids Extra Strength 470 mg calcium (1,177 mg) Tablet,Chewable 470 mg PO DIRECTED PRN (Reason: UPSET STOMACH) RF: 0 Herbal Water Pill 1 tab PO DAILY PRN (Reason: Edema) RF: 0 Referrals Referrals: Shin Kearney MD [Primary Care Provider] -
[2021-12-22 02:05] LABS: Appearance Urine Clear (Clear); Bacteria Urine Automated Negative (Negative); Bilirubin Urine Negative (Negative); Blood Urine Negative (Negative); Color Urine Dark Yellow; Epithelial Cell Urine Auto >30 /lpf (0-5); Glucose Urine UA Negative (Negative); Ketones Urine Negative (Negative); Leukocyte Esterase Urine Trace (Negative); Nitrite Urine Negative (Negative); Protein Urine 1+ (Negative); Specific Gravity Urine 1.024 (1.000-1.030); Urobilinogen Urine Negative (Negative)
[2021-12-22 02:26] LABS: Albumin Globulin Ratio 1.2 (0.9-2); Albumin Level 3.5 gm/dl (3.4-5.0); BUN Creatinine Ratio 18.9 (10-20); Bilirubin,Total 1.3 mg/dl (0.2-1.0); Calcium 8.8 mg/dl (8.5-10.1); Creatinine Clr Calc Pharmacy 80.5 ml/min; Est GFR (African American) 104.7 ml/min; Est GFR (Non-African American) 90.3 ml/min; Globulin 2.9 gm/dl (2.5-4.0); Magnesium 1.6 mg/dl (1.7-2.4); Potassium 3.2 mmol/L (3.5-5.1); Total Protein 6.4 gm/dl (6.0-8.3)
[2021-12-22 02:55] LABS: Hematocrit (blood only) 35.1 % (37-47); Hemoglobin 12.7 g/dL (12.0-16.0); Mean Corpuscular Hemoglobin 29.6 pg (25-34); Mean Corpuscular Hgb Conc 36.2 g/dL (32-36); Mean Corpuscular Volume 81.8 fL (80-100); Mean Platelet Volume 11.4 fL (7.4-10.4); Platelet Count 49 K/uL (130-400); RDW Coefficient of Variation 13.5 % (11.5-14.5); RDW Standard Deviation 41.1 fL (36.4-46.3); Red Blood Count 4.29 M/uL (4.2-5.4); White Blood Count 6.47 K/uL (4.8-10.8)
[2021-12-22] MEDS ORDERED: OPTIRAY 320 100ml IV ONE (03:12)
[2021-12-22] MEDS ORDERED: ATOVAQUONE 750 MG/5 ML UDC PO STA (03:45)
[2021-12-22] MEDS ORDERED: AZITHROMYCIN 500 MG in DEXTROSE 5% 250 ML IV ONE (03:45)
[2021-12-22 03:48] LABS: Basophils # (auto) 0.03 K/uL (0-0.2); Basophils % (auto) 0.5 %; Immature Granulocytes # (auto) 0.02 K/uL (0.00-0.02); Immature Granulocytes % (auto) 0.3 %; Lymphocytes # (auto) 1.07 K/uL (1.2-3.4); Lymphocytes % (auto) 16.5 %; Monocytes # (auto) 1.25 K/uL (0.11-0.59); Monocytes % (auto) 19.3 %; Neutrophils % (auto) 63.4 %
[2021-12-22 03:51] LABS: Platelet Estimate Decreased (Normal); RBC Morphology Unremarkable
[2021-12-22] MEDS ORDERED: POTASSIUM CHLORIDE 10 MEQ TABCR PO STA (04:00)
[2021-12-22] MEDS ORDERED: cefTRIAXone SODIUM 1,000 MG/50 ML BAG IV SCH (05:15)
--- NOTE | 2021-12-22 05:27 | History & Physical Report ---
Date of Service December 22, 2021 Assessment & Plan (1) Dehydration: Plan: 81 y/o F Hx HLD, depression, sacroiliitis and radiculopathy with chronic pain. She was recently started on gabapentin and reported that her pain increased when taking it. She DCd the medication, however, her back and leg pain has progressed. She reports multiple recent tick bites, and was prescribed doxycycline by her primary MD 3 days prior for presumed Lyme infection. On arrival to the ER she was afebrile. Labs were however notable for hyponatremia, hypokalemia, hypomagnesemia, transaminitis and a platelet count of 49. Peripheral smear was + for RBC inclusions and negative for anaplasmosis. Lyme results are pending. 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 2) Thrombocytopenia - due to tick-borne illness - trend only for now. 3) Hyponatremia and hypokalemia - NS/KCL, trend BMP 4) Chronic pain - we have had to hold NSAIDS due to low platelets. Tramadol, Tylenol provided. 5) HLD - cont statin Full code Total time for this admit including review of labs, meds, imaging, records - discussion with pt and ER attending - 40 min (2) Acute hypokalemia: (3) Acute hyponatremia: (4) Babesiosis: (5) Spinal stenosis of lumbar region: History of Present Illness Chief Complaint: Muscle and back aches Primary Care Provider: Shin Kearney MD 81 y/o F Hx HLD, depression, sacroiliitis and radiculopathy with chronic pain. She was recently started on gabapentin and reported that her pain increased when taking it. She DCd the medication, however, her back and leg pain has progressed. She reports multiple recent tick bites, and was prescribed doxycycline by her primary MD 3 days prior for presumed Lyme infection. On arrival to the ER she was afebrile. Labs were however notable for hyponatremia, hypokalemia, hypomagnesemia, transaminitis and a platelet count of 49. Peripheral smear was + for RBC inclusions and negative for anaplasmosis. Lyme results are pending. PMH: 1) HLD 2) GERD 3) Lumbar stenosis - chronic pain owing to bursitis of hips, lumbar radiculopathy and sacroiliitis. 4) Depression 5) Lower extremity edema Surgical: Limited to hysterectomy Social: Does not smoke or drink Family: Noncontributory due to pt age Allergies Allergy/AdvReac Type Severity Reaction Status Date / Time No Known Allergies Allergy Verified 12/22/21 01:51 Home Medications Medication Instructions Recorded Confirmed Type Lactobacillus acidophilus 1 tab PO QDD tab 04/12/18 12/22/21 History (Acidophilus) ascorbic acid (vitamin C) 500 mg 500 mg PO QDD 04/12/18 12/22/21 History tablet chlorpheniramine maleate 4 mg 4 mg PO TID tab 04/12/18 12/22/21 History tablet glucosamine-chondroitin 500 mg-400 1 cap PO QDD 04/12/18 12/22/21 History mg capsule magnesium oxide 400 mg (241.3 mg 400 mg PO HS tab 04/12/18 12/22/21 History magnesium) tablet mecobalamin (vitamin B12) 1,000 1,000 mcg PO QAM 04/12/18 12/22/21 History mcg disintegrating tablet,sublingual melatonin 5 mg tablet 10 mg PO HS 04/12/18 12/22/21 History multivitamin 1 tab PO QAM 04/12/18 12/22/21 History omega-3 fatty acids 1,250 mg 1,250 mg PO QDD 04/12/18 12/22/21 History capsule potassium 99 mg tablet 99 mg PO QDD 04/12/18 12/22/21 History simethicone 125 mg capsule 125 mg PO QDD 04/12/18 12/22/21 History vitamin E mixed 200 unit tablet 200 units PO QDD tab 04/12/18 12/22/21 History hydrochlorothiazide 12.5 mg capsule 12.5 mg PO DAILY PRN #30 cap 03/05/20 12/22/21 Rx naproxen 250 mg tablet 250 mg PO BIDM PRN 04/20/21 12/22/21 History Cranberry W/Vitamin C 1 tab PO QAM 12/22/21 12/22/21 History Herbal Water Pill 1 tab PO DAILY PRN 12/22/21 12/22/21 History acetaminophen 325 mg tablet 650 mg PO DIRECTED PRN 12/22/21 12/22/21 History (Tylenol) aluminum-mag hydroxide-simethicone 10 ml PO DIRECTED PRN 12/22/21 12/22/21 History 200 mg-200 mg-20 mg/5 mL oral susp [id number] 250 1 tab PO DIRECTED PRN 12/22/21 12/22/21 History mg-250 mg-65 mg tablet (Excedrin Migraine) buspirone 10 mg tablet 10 mg PO BIDM 12/22/21 12/22/21 History calcium carbonate 300 mg (750 mg) 300 mg PO DIRECTED PRN 12/22/21 12/22/21 History chewable tablet (Tums) calcium carbonate 470 mg calcium 470 mg PO DIRECTED PRN 12/22/21 12/22/21 History (1,177 mg) chewable tablet herbal drugs 1 tab PO BIDM 12/22/21 12/22/21 History ibuprofen 200 mg tablet 200 mg PO DIRECTED PRN 12/22/21 12/22/21 History ibuprofen 200 mg tablet 200 mg PO BIDM 12/22/21 12/22/21 History omeprazole 20 mg capsule,delayed 20 mg PO QAM 12/22/21 12/22/21 History release oxymetazoline 0.05 % nasal spray 2 spray INTRANASAL AMHS 12/22/21 12/22/21 History (Afrin (oxymetazoline)) rosuvastatin 5 mg tablet 5 mg PO QAM 12/22/21 12/22/21 History trazodone 100 mg tablet 100 mg PO HS PRN 12/22/21 12/22/21 History Past Med/Surg History Medical History Carpal tunnel syndrome of left wrist Dyslipidemia GERD (gastroesophageal reflux disease) Greater trochanteric bursitis of left hip History of gastric ulcer Hypertension Lumbar radicular pain Sacroiliitis Spinal stenosis of lumbar region Surgical History H/O: hysterectomy History of adenoidectomy History of tonsillectomy Family History Mother Breast cancer Aunt Breast cancer Brother Stroke Grandfather No problems noted. Grandfather Lung cancer Other Diabetes Denies family history of Ovarian cancer Prostate cancer Myocardial infarction Colorectal cancer Social History Smoking Status: Never smoker Second Hand Exposure: No; Hx Alcohol Use: No Hx Substance Use: No Preferred Language: Arabic Communication Ability: Effective Visual Impairment: Limited Hearing Ability: Use of Hearing Aid marital status: Current Living Situation: Alone current occupational status: retired current occupation: used to work as medical records secretary Feels Safe at Home: Yes Childhood Exposure to Second-Hand Smoke: Yes (father and grandfather) caffeine: Yes during the past year weight has: remained stable Dental Care, Regularly: Yes Physical Activity Frequency: Daily Seatbelt Use: always Sunscreen Use: Yes Review of Systems Review of Systems: Gen: Denies fevers, night sweats, rigors, fatigue, malaise, weight loss/gain ENT: Denies congestion, throat pain, hearing loss Eyes: Denies acute visual changes CV: Denies CP, palpitations Pulmonary: Denies SOB, cough, wheezing GI: Denies N/V, diarrhea, constipation Neuro: Denies acute or unilateral weakness, acute gait impairment, headache or acute visual changes Musculoskeletal: Choronic pain in lower back - worsening pain in legs Endocrine: Denies polydipsia, polyuria Skin: Denies acute rashes or ulcers Physical Exam Physical Exam: General: AAO x 2, no distress ENT: No erythema or exudates, no thrush Eyes: SHANICE, EOMI Head and neck: Normocephalic, atraumatic, No JVD, neck is supple. Chest/heart: Nontender, S1,2, RRR, no murmurs, no gallops Lungs: CTAB, no wheezing or crackles Abdomen: Nontender, nondistended, BS+ Neuro: AAO x 2, speech is clear, no unilateral weakness or loss of sensation, coordination intact Musculoskeletal: No joint inflammation, muscle tenderness, FROM Skin: No acute rashes or ulcers Extremities: No clubbing, cyanosis, edema Results & Data Results & Data ([facility]) Vital Signs (Past 12 Hours) Vital Signs Temp Pulse Pulse Resp BP BP Pulse Ox 12/22/21 03:31 73 28 H 118/66 97 12/22/21 01:45 79 17 103/67 97 12/22/21 01:40 81 16 96 12/22/21 01:18 97.7 F 86 20 127/73 97 Code Status & VTE Plan VTE Prophylaxis Plan VTE Prophylaxis will be ordered: No PG Care Time/CCT Total # of Minutes Spent Total Time Spent with Patient: Total time spent is greater than 50% in coordination of care (as documented) at patient's floor/unit and/or counseling patient: Coding Level of Care Code 91084 Initial Inpt Care Lvl 3 Diagnoses Dehydration E86.0 Acute hypokalemia E87.6 Acute hyponatremia E87.1 Babesiosis B60.00 Spinal stenosis of lumbar region M48.061
[2021-12-22] MEDS ORDERED: traZODone HCL 100 MG TAB PO PRN (06:20)
[2021-12-22 06:24] LABS: Lyme Ab IgG w/WB Rflx Positive (Negative); Lyme Ab IgM w/WB Rflx Equivocal (Negative)
[2021-12-22] MEDS ORDERED: CALCIUM CARBONATE 500 MG CHEWABLE TAB PO PRN (06:43)
[2021-12-22] MEDS ORDERED: NSS + 20MEQ KCL 20 MEQ/1,000 ML BAG IV SCH (07:00)
[2021-12-22] MEDS ORDERED: cefTRIAXone SODIUM 2,000 MG in DEXTROSE 5% 50 ML IV SCH (07:00)
[2021-12-22] MEDS ORDERED: busPIRone 5 MG TAB PO SCH (08:00)
[2021-12-22] MEDS: MAGNESIUM SULFATE / D5W 1 GM/100 ML BAG IV SCH ×2 (08:09→10:31)
[2021-12-22] MEDS: ACETAMINOPHEN 325 MG TAB PO PRN ×2 (08:21→14:40)
--- NOTE | 2021-12-22 08:29 | CT Scan Report ---
CT SCAN OF THE ABDOMEN AND PELVIS WITH IV CONTRAST CLINICAL HISTORY: Diarrhea. Elevated hepatic transaminases. COMPARISON STUDY: Abdominal CT dated 05/16/2017 TECHNIQUE: Following the IV administration of 93 cc of Optiray 320, CT scan of the abdomen and pelvi s is performed from the lung bases to the proximal femora. Images are reviewed in the axial, sagittal , and coronal planes. IV contrast was administered without complication. A dose lowering technique wa s utilized adhering to the principles of ALARA. CT DOSE: 330.49 mGy.cm FINDINGS: Lung bases: The heart is normal in size and without pericardial effusion. Calcified granulomas are se en at both lung bases. The lung bases are otherwise clear noting bibasilar scarring/atelectasis. Ther e is a moderate hiatal hernia. Liver: The contrast-enhanced liver is normal in size, contour, and attenuation. There is no intrahepa tic biliary ductal dilatation. The hepatic veins and portal veins are patent. Gallbladder: Unremarkable. Spleen: The spleen is enlarged, measuring 15.1 cm in length. There are calcified splenic granuloma. Pancreas: Unremarkable. Adrenal glands: Unremarkable. Kidneys: The contrast enhanced kidneys are normal in size and without hydronephrosis. The kidneys enh ance symmetrically. A 1.4 cm cyst is noted in the interpolar left kidney. A circumaortic left renal v ein is incidentally noted. Abdominal vasculature: There is advanced atherosclerotic calcification of the abdominal aorta. 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 Bowel: There is mild colonic diverticulosis without CT evidence of acute diverticulitis. No bowel obs truction is seen. The appendix is well-visualized and normal. Peritoneum: There is no intraperitoneal free air or abdominal ascites. There is a small fat-containin g umbilical hernia. Lymphadenopathy: None. Pelvic viscera: The bladder is normal as visualized. The uterus is surgically absent. No adnexal lesi on is seen. A fat-containing hernia is noted in the right groin. Skeletal structures: The skeletal structures are osteopenic. There is mild to moderate lumbosacral sp ondylosis. No lytic or blastic lesions are seen. Advanced arthritic change is seen in the left hip. IMPRESSION: 1. No acute infectious or inflammatory findings are identified in the abdomen or pelvis. 2. The liver is normal in size and attenuation. 3. Splenomegaly. 4. Moderate hiatal hernia. 5. Additional findings as above. ACT 112: Negative or not required by law. Electronically signed by: Duong Navarrete M.D. 12/22/2021 8:27 AM
[2021-12-22 08:47] LABS: Albumin Level 3.3 gm/dl (3.4-5.0); Bilirubin Direct 0.2 mg/dl (0-0.2); Bilirubin,Total 1.1 mg/dl (0.2-1.0)
[2021-12-22 08:49] LABS: BUN Creatinine Ratio 16.3 (10-20); Calcium 8.8 mg/dl (8.5-10.1); Creatinine Clr Calc Pharmacy 87.4 ml/min; Est GFR (African American) 107.4 ml/min; Est GFR (Non-African American) 92.7 ml/min; Potassium 3.9 mmol/L (3.5-5.1)
[2021-12-22] MEDS ORDERED: ROSUVASTATIN CALCIUM 5 MG TAB PO SCH (09:00)
[2021-12-22] MEDS ORDERED: PANTOprazole 40 MG TAB PO SCH (09:00)
[2021-12-22] MEDS ORDERED: CYANOCOBALAMIN (B-12) 500 MCG TABLET PO SCH (09:00)
[2021-12-22 09:05] LABS: Hematocrit (blood only) 34.4 % (37-47); Hemoglobin 12.3 g/dL (12.0-16.0); Mean Corpuscular Hemoglobin 29.3 pg (25-34); Mean Corpuscular Hgb Conc 35.8 g/dL (32-36); Mean Corpuscular Volume 81.9 fL (80-100); RDW Coefficient of Variation 13.7 % (11.5-14.5); RDW Standard Deviation 41.4 fL (36.4-46.3); White Blood Count 4.91 K/uL (4.8-10.8)
[2021-12-22 10:05] LABS: Basophils # (auto) 0.03 K/uL (0-0.2); Basophils % (auto) 0.6 %; Eosinophils # (auto) 0.03 K/uL (0-0.5); Eosinophils % (auto) 0.6 %; Immature Granulocytes # (auto) 0.03 K/uL (0.00-0.02); Immature Granulocytes % (auto) 0.6 %; Lymphocytes # (auto) 1.02 K/uL (1.2-3.4); Lymphocytes % (auto) 20.8 %; Mean Platelet Volume 11.8 fL (7.4-10.4); Monocytes # (auto) 1.11 K/uL (0.11-0.59); Monocytes % (auto) 22.6 %; Neutrophils # (auto) 2.69 K/uL (1.4-6.5); Neutrophils % (auto) 54.8 %; Platelet Count 47 K/uL (130-400)
[2021-12-22] MEDS ORDERED: AZITHROMYCIN 250 MG TAB PO ONE (13:58)
[2021-12-22] MEDS ORDERED: SIMETHICONE 80 MG CHEW PO SCH (16:30)
[2021-12-22] MEDS ORDERED: ATOVAQUONE 750 MG/5 ML UDC PO SCH (17:00)
--- NOTE | 2021-12-22 18:57 | Discharge Summary ---
Date of Service December 22, 2021 Admission HPI Per Admitting Provider 81 y/o F Hx HLD, depression, sacroiliitis and radiculopathy with chronic pain. She was recently started on gabapentin and reported that her pain increased when taking it. She DCd the medication, however, her back and leg pain has progressed. She reports multiple recent tick bites, and was prescribed doxycycline by her primary MD 3 days prior for presumed Lyme infection. On arrival to the ER she was afebrile. Labs were however notable for hyponatremia, hypokalemia, hypomagnesemia, transaminitis and a platelet count of 49. Peripheral smear was + for RBC inclusions and negative for anaplasmosis. Lyme results are pending. PMH: 1) HLD 2) GERD 3) Lumbar stenosis - chronic pain owing to bursitis of hips, lumbar radiculopathy and sacroiliitis. 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 HEENT normocephalic atraumatic mucous membranes moist. Breathing unlabored no accessory muscle use good effort. Skin shows no rashes no pallor or icterus. Neuro without focal deficits. Discharge Data Allergies Allergy/AdvReac Type Severity Reaction Status Date / Time No Known Allergies Allergy Verified 12/22/21 01:51 Consultations 12/22/21 04:14 ED Decision to Admit Stat Ordered Studies 12/22/21 02:35 CT abd pelvis IV con only Urgent Hospital Course (1) Dehydration: 81 y/o F Hx HLD, depression, sacroiliitis and radiculopathy with chronic pain. She was recently started on gabapentin and reported that her pain increased when taking it. She DCd the medication, however, her back and leg pain has progressed. She reports multiple recent tick bites, and was prescribed doxycycline by her primary MD 3 days prior for presumed Lyme infection. On arrival to the ER she was afebrile. Labs were however notable for hyponatremia, hypokalemia, hypomagnesemia, transaminitis and a platelet count of 49. P eripheral smear was + for RBC inclusions and negative for anaplasmosis. Lyme results are pending. 1) Babesiosis -and with positive Lyme screenhave to assume she also has concomitant Lyme. She is feeling better, feeling good enough to go homewe will treat with doxycycline for the Lyme (she already has this at home), and have added azithromycin and atovaquone for the babesiosis. Discussed with her (both in person and reiterated in writing) that it is possible the babesiosis created a false positive Lyme screenand if her Western blot is not consistent with acute Lyme, at that point it would be reasonable for her PCP to discontinue the doxycycline. That said, given that coinfection is quite probable, particularly given how endemic this area is with tickborne illnessit is prudent to treat for both. (Discussed potential sun sensitivity with doxycycline) 2) Thrombocytopenia - due to tick-borne illness -follow up as an outpatient 3) Hyponatremia and hypokalemia -improved to safe ranges with fluids and supportive care. Safe/stable for home, follow-up as an outpatient 4) Chronic pain -temporarily holding NSAIDS due to low platelets. Outpatient follow-up 5) HLD - cont statin Stable for home (2) Acute hypokalemia: (3) Acute hyponatremia: (4) Babesiosis: (5) Spinal stenosis of lumbar region: Total Time Total Time Spent Total Time Spent (In Minutes): Greater than 30 Discharge Plan Discharge Items Patient Disposition: Home - Self-Care Reason For Visit: BACK AND LEG PAIN - LOW PLATELETS Discharge Diagnosis: babesiosis and probable lyme disease Activity: Resume your previous activity Non-emergency contact: Primary Care Provider Call non-emergency contact if: you have any medication questions and your sy mptoms worsen Follow-up/Referrals: Shin Kearney MD [Primary Care Provider] - 12/25/21 3:00 pm Diet: Regular Addtl Attending Provider Instructions: tick borne illnesses -[facility] is a "hotbed" for tick borne illnesses - so it's really common for people to get them in this area -The 3 most common that we see her Lyme disease, babesiosis, and anaplasmosis. -It appears that you most likely have babesiosis and Lyme disease. It is not rare for text to transmit multiple diseases at once. Lyme disease responds to doxycycline (which you were previously on), but unfortunately babesiosis does notwhich is probably why you were still getting sicker -Fortunately these kind of illnesses all get better with antibiotic treatment. -For the Lyme, we will have you continue the doxycycline that was previously prescribed. We want you to be on it for 10 days totalyou noted that you were pretty certain you had enough at home, if you do not, please call as we can send in a new prescription. you should be taking 100mg twice a day for another 7 days. As we discussed, doxycycline does have the potential to make someone more sun sensitiveto that end wear long sleeves/sunblock/"pretend you are at the beach". The lab work for your Lyme showed a positive screening test, by the end of the week the actual antibody test should be backif those antibodies are negative, it is possible that the babesiosis created a "false positive" Lyme screening testand therefore, if those antibodies are negative, we might be able to stop the doxycycline sooner -For the babesiosis, we need to treat with a combination of antibioticsazithromycin and atovaquoneboth for another 8 days. Both of these generally sit well, it would be okay to take them with food to make sure it does not upset your stomach. -Like we talked about, it could easily be till Tuesday before you truly start to feel better. I would not expect you to feel worse moving forward, but it is very possible that you will feel the same degree of achiness/overall lousiness for another 1 to 2 days. -Follow-up with your PCP by the end of the week for recheck Pending Studies at Discharge: Yes (lyme antibodies (western blot)) Stand-Alone Forms: My [facility], Smoking Cessation Medications and DC Order Prescriptions: New atovaquone [Mepron] 750 mg/5 mL Suspension 750 mg PO Q12H 8 Days Qty: 80 RF: 0 azithromycin 250 mg tablet 250 mg PO DAILY 8 Days Qty: 8 RF: 0 Continued naproxen 250 mg tablet 250 mg PO BIDM PRN (Reason: Pain) RF: 0 multivitamin tablet 1 tab PO QAM RF: 0 chlorpheniramine maleate 4 mg tablet 4 mg PO TID RF: 0 simethicone 125 mg capsule 125 mg PO QDD RF: 0 potassium 99 mg tablet 99 mg PO QDD RF: 0 magnesium oxide 400 mg (241.3 mg magnesium) tablet 400 mg PO HS RF: 0 ascorbic acid (vitamin C) 500 mg tablet 500 mg PO QDD RF: 0 glucosamine-chondroitin 500-400 mg capsule 1 cap PO QDD RF: 0 Lactobacillus acidophilus [Acidophilus] tablet,chewable 1 tab PO QDD RF: 0 melatonin 5 mg tablet 10 mg PO HS RF: 0 omega-3 fatty acids 1,250 mg capsule 1,250 mg PO QDD RF: 0 vitamin E mixed 200 unit tablet 200 units PO QDD RF: 0 mecobalamin (vitamin B12) 1,000 mcg tablet,disintegrating 1,000 mcg PO QAM RF: 0 hydrochlorothiazide 12.5 mg capsule 12.5 mg PO DAILY PRN (Reason: edema) Qty: 30 RF: 5 ibuprofen 200 mg Tablet 200 mg PO BIDM RF: 0 herbal drugs Tablet 1 tab PO BIDM RF: 0 oxymetazoline [Afrin (oxymetazoline)] 0.05 % Hana,Non-Aerosol 2 spray INTRANASAL AMHS RF: 0 Cranberry W/Vitamin C 1 tab PO QAM RF: 0 buspirone 10 mg tablet 10 mg PO BIDM RF: 0 omeprazole 20 mg capsule,delayed release(DR/EC) 20 mg PO QAM RF: 0 rosuvastatin 5 mg tablet 5 mg PO QAM RF: 0 acetaminophen [Tylenol] 325 mg Tablet 650 mg PO DIRECTED PRN (Reason: Pain) RF: 0 calcium carbonate [Tums] 300 mg (750 mg) Tablet,Chewable 300 mg PO DIRECTED PRN (Reason: UPSET STOMACH) RF: 0 trazodone 100 mg Tablet 100 mg PO HS PRN (Reason: Sleep) RF: 0 ibuprofen 200 mg Tablet 200 mg PO DIRECTED PRN (Reason: Pain) RF: 0 alum-mag hydroxide-simeth 200-200-20 mg/5 mL Suspension 10 ml PO DIRECTED PRN (Reason: HEARTBURN/INDIGESTION) RF: 0 Excedrin Migraine 250-250-65 mg Tablet 1 tab PO DIRECTED PRN (Reason: Headache) RF: 0 calcium carbonate 470 mg calcium (1,177 mg) Tablet,Chewable 470 mg PO DIRECTED PRN (Reason: UPSET STOMACH) RF: 0 Herbal Water Pill 1 tab PO DAILY PRN (Reason: Edema) RF: 0 Discharge Orders: Discharge Order (Routine); Ordered 12/22/21 Ordered By: Earnest Arreola/Other Patient Handouts: ED Lyme Disease Admission Data Admit Date/Time: 12/22/21 05:09 Attending Provider: Earnest Hobson Admit Provider: Maury Nowak Primary Care Provider: Shin Kearney Other Providers: Maury Nowak Other Interventions: Discharge Summary Assessment (RN) Last Done: 12/22/21 14:56 Coding Level of Care Code D/C DAY MANAGEMENT >30 MINS Diagnoses Dehydration E86.0 Acute hypokalemia E87.6 Acute hyponatremia E87.1 Babesiosis B60.00 Spinal stenosis of lumbar region M48.061
[2021-12-22] MEDS ORDERED: MAGNESIUM OXIDE 400 MG TAB PO SCH (21:00)
[2021-12-22] MEDS ORDERED: MELATONIN 3 MG TAB PO SCH (21:00)
[2021-12-23] MEDS ORDERED: AZITHROMYCIN 500 MG in DEXTROSE 5% 250 ML IV SCH (04:00)
[2021-12-23 22:06] LABS: Babesia microti DNA Detected (Not Detected)
[2021-12-24 16:06] LABS: 18KDIGG Band REACTIVE; 23KDIGG Band NON-REACTIVE; 23KDIGM Band NON-REACTIVE; 28KDIGG Band REACTIVE; 30KDIGG Band REACTIVE; 39KDIGG Band REACTIVE; 39KDIGM Band NON-REACTIVE; 41KDIGG Band REACTIVE; 41KDIGM Band NON-REACTIVE; 45KDIGG Band REACTIVE; 58KDIGG Band REACTIVE; 66KDIGG Band REACTIVE; 93KDIGG Band REACTIVE; Lyme Antibodies, WB IgG POSITIVE (NEGATIVE); Lyme Antibodies, WB IgM NEGATIVE (NEGATIVE)
== END 2021-12-22 16:02 | disposition home or self-care (01) ==
LOC: ED 01:14 → SUATTDRO 05:09 → 3W 05:09 → INTOOBSV 05:09 → 3W 05:29

== ENCOUNTER 2023-02-08 06:19 | Observation (INO) ==
--- NOTE | 2023-01-25 12:33 | PAT Medication Instructions ---
Medication Instructions Date of Service January 25, 2023 Home Medications Medication Instructions Recorded hydrochlorothiazide 12.5 mg capsule 12.5 mg PO DAILY PRN edema #30 caps 03/05/20 omeprazole 20 mg capsule,delayed 20 mg PO QAM #90 caps 11/01/22 release Lactobacillus acidophilus (Acidophilus chewable tablet) 1 tab PO QPM ascorbic acid (vitamin C) 500 mg tablet 500 mg PO QPM chlorpheniramine maleate 4 mg tablet 4 mg PO TID glucosamine-chondroitin 500 mg-400 mg capsule 1 cap PO BID melatonin 5 mg tablet 10 mg PO HS multivitamin 1 tab PO QAM omega-3 fatty acids 1,250 mg capsule 1,250 mg PO QDD potassium 99 mg tablet 99 mg PO QPM simethicone 125 mg capsule 125 mg PO QPM vitamin E mixed 200 unit tablet 400 units PO QPM hydrochlorothiazide 12.5 mg capsule 12.5 mg PO DAILY PRN edema Cranberry W/Vitamin C 1 tab PO QAM Herbal Water Pill 1 tab PO DAILY PRN Edema acetaminophen 325 mg tablet (Tylenol) 650 mg PO UD PRN Pain aluminum-mag hydroxide-simethicone 200 mg-200 mg-20 mg/5 mL oral susp 10 ml PO DIRECTED PRN HEARTBURN/INDIGESTION [id number]-[id number] 250 mg-250 mg-65 mg tablet (Excedrin Migraine) 1 tab PO UD PRN Headache buspirone 10 mg tablet 10 mg PO BID calcium carbonate 300 mg (750 mg) chewable tablet (Tums) 300 mg PO DIRECTED PRN UPSET STOMACH herbal drugs 1 tab PO BID oxymetazoline 0.05 % nasal spray (Afrin (oxymetazoline)) 2 spray intranasal BID PRN Congestion naproxen sodium 220 mg capsule (Aleve) 220 mg PO Q8H PRN Pain omeprazole 20 mg capsule,delayed release 20 mg PO QAM Herbal Joint Supplement 1 tab PO BID Watkin's Linament 1 dose topical UD PRN Pain cholecalciferol (vitamin D3) 50 mcg (2,000 unit) capsule (Vitamin D3) 50 mcg PO QPM cyanocobalamin (vitamin B-12) 1,000 mcg tablet (Vitamin B-12) 1,000 mcg PO QAM magnesium 250 mg tablet 250 mg PO HS rosuvastatin 5 mg tablet 5 mg PO QAM ASK your surgeon for instructions [id number] 250 mg-250 mg-65 mg tablet (Excedrin Migraine) 1 tab PO UD PRN Headache naproxen sodium 220 mg capsule (Aleve) 220 mg PO Q8H PRN Pain STOP taking 2 weeks before surgery glucosamine-chondroitin 500 mg-400 mg capsule 1 cap PO BID omega-3 fatty acids 1,250 mg capsule 1,250 mg PO QDD vitamin E mixed 200 unit tablet 400 units PO QPM Cranberry W/Vitamin C 1 tab PO QAM Herbal Water Pill 1 tab PO DAILY PRN Edema herbal drugs 1 tab PO BID Herbal Joint Supplement 1 tab PO BID STOP taking 24 hours before surgery Watkin's Linament 1 dose topical UD PRN Pain DO NOT take the morning of surgery chlorpheniramine maleate 4 mg tablet 4 mg PO TID multivitamin 1 tab PO QAM hydrochlorothiazide 12.5 mg capsule 12.5 mg PO DAILY PRN edema aluminum-mag hydroxide-simethicone 200 mg-200 mg-20 mg/5 mL oral susp 10 ml PO DIRECTED PRN HEARTBURN/INDIGESTION calcium carbonate 300 mg (750 mg) chewable tablet (Tums) 300 mg PO DIRECTED PRN UPSET STOMACH cyanocobalamin (vitamin B-12) 1,000 mcg tablet (Vitamin B-12) 1,000 mcg PO QAM Take morning of surgery With a small sip of water, OTHERWISE NOTHING TO EAT OR DRINK AFTER MIDNIGHT: acetaminophen 325 mg tablet (Tylenol) 650 mg PO UD PRN Pain (if needed) buspirone 10 mg tablet 10 mg PO BID oxymetazoline 0.05 % nasal spray (Afrin (oxymetazoline)) 2 spray intranasal BID PRN Congestion (if needed) omeprazole 20 mg capsule,delayed release 20 mg PO QAM rosuvastatin 5 mg tablet 5 mg PO QAM Take evening before surgery Lactobacillus acidophilus (Acidophilus chewable tablet) 1 tab PO QPM ascorbic acid (vitamin C) 500 mg tablet 500 mg PO QPM chlorpheniramine maleate 4 mg tablet 4 mg PO TID melatonin 5 mg tablet 10 mg PO HS potassium 99 mg tablet 99 mg PO QPM simethicone 125 mg capsule 125 mg PO QPM hydrochlorothiazide 12.5 mg capsule 12.5 mg PO DAILY PRN edema (if needed) acetaminophen 325 mg tablet (Tylenol) 650 mg PO UD PRN Pain (if needed) aluminum-mag hydroxide-simethicone 200 mg-200 mg-20 mg/5 mL oral susp 10 ml PO DIRECTED PRN HEARTBURN/INDIGESTION (if needed) buspirone 10 mg tablet 10 mg PO BID calcium carbonate 300 mg (750 mg) chewable tablet (Tums) 300 mg PO DIRECTED PRN UPSET STOMACH (if needed) oxymetazoline 0.05 % nasal spray (Afrin (oxymetazoline)) 2 spray intranasal BID PRN Congestion (if needed) cholecalciferol (vitamin D3) 50 mcg (2,000 unit) capsule (Vitamin D3) 50 mcg PO QPM magnesium 250 mg tablet 250 mg PO HS Other Notes If you have any questions please call us at [phone] or [phone] or [phone] or [phone]
--- NOTE | 2023-01-27 13:41 | Anesthesiology Consultation ---
Date of Service January 27, 2023 Assessment & Plan (1) Encounter for pre-operative examination: Chart Review Chart Review: Acceptable Risk for Surgery and Patient seen in Pre Admission Testing - Due to age- patient is NOT an OPJ candidate Per PAT appt on 01/27/23, patient denies any recent travel. No recent Covid exposures, Covid related symptoms, or recent Covid positive tests. Will leave to surgeon's discretion if preop Covid testing needed. Educated on importance of using Covid precautions one week prior to surgery Teaching & Discussion Pre-Anesthesia Teaching/Discussion Notes: Instructed NPO after midnight before surgery,except medications with 15 cc of water. Medication instructions provided according to the [facility] guidelines. History Surgery Operation Date: 02/08/23 07:00 Proposed Procedures p Left Total Hip Arthroplasty - Marcello Silvestre MD Height/Weight Height: 5 ft 4 in Weight: 67.3 kg Allergies Allergy/AdvReac Type Severity Reaction Status Date / Time ropinirole AdvReac Mild Insomnia Verified 01/25/23 10:10 trazodone AdvReac Mild Unknown Verified 01/25/23 10:10 Medications Home Medications Medication Instructions Recorded Confirmed Last Taken Lactobacillus acidophilus 1 tab PO QPM 04/12/18 01/25/23 12/20/21 (Acidophilus chewable tablet) ascorbic acid (vitamin C) 500 mg 500 mg PO QPM 04/12/18 01/25/23 12/20/21 tablet chlorpheniramine maleate 4 mg 4 mg PO TID 04/12/18 01/25/23 12/21/21 08:00 tablet glucosamine-chondroitin 500 mg-400 1 cap PO BID 04/12/18 01/25/23 12/20/21 mg capsule melatonin 5 mg tablet 10 mg PO HS 04/12/18 01/25/23 12/20/21 multivitamin 1 tab PO QAM 04/12/18 01/25/23 12/21/21 omega-3 fatty acids 1,250 mg 1,250 mg PO QDD 04/12/18 01/25/23 12/20/21 capsule potassium 99 mg tablet 99 mg PO QPM 04/12/18 01/25/23 12/20/21 simethicone 125 mg capsule 125 mg PO QPM 04/12/18 01/25/23 12/20/21 vitamin E mixed 200 unit tablet 400 units PO QPM 04/12/18 01/25/23 12/20/21 hydrochlorothiazide 12.5 mg capsule 12.5 mg PO DAILY PRN edema #30 caps 03/05/20 01/25/23 Unknown Cranberry W/Vitamin C 1 tab PO QAM 12/22/21 01/25/23 12/21/21 Herbal Water Pill 1 tab PO DAILY PRN Edema 12/22/21 01/25/23 Unknown acetaminophen 325 mg tablet 650 mg PO UD PRN Pain 12/22/21 01/25/23 Unknown (Tylenol) aluminum-mag hydroxide-simethicone 10 ml PO DIRECTED PRN 12/22/21 01/25/23 Unknown 200 mg-200 mg-20 mg/5 mL oral susp HEARTBURN/INDIGESTION [id number]-nkhxftnfichcn-rjodgwuu 250 1 tab PO UD PRN Headache 12/22/21 01/25/23 Unknown mg-250 mg-65 mg tablet (Excedrin Migraine) buspirone 10 mg tablet 10 mg PO BID 12/22/21 01/25/23 12/21/21 08:00 calcium carbonate 300 mg (750 mg) 300 mg PO DIRECTED PRN UPSET 12/22/21 01/25/23 Unknown chewable tablet (Tums) STOMACH herbal drugs 1 tab PO BID 12/22/21 01/25/23 12/21/21 08:00 oxymetazoline 0.05 % nasal spray 2 spray intranasal BID PRN 12/22/21 01/25/23 12/21/21 08:00 (Afrin (oxymetazoline)) Congestion naproxen sodium 220 mg capsule 220 mg PO Q8H PRN Pain 05/05/22 01/25/23 Unknown (Aleve) omeprazole 20 mg capsule,delayed 20 mg PO QAM #90 caps 11/01/22 01/25/23 Unknown release Herbal Joint Supplement 1 tab PO BID 01/25/23 01/25/23 Unknown Watkin's Linament 1 dose topical UD PRN Pain 01/25/23 01/25/23 Unknown cholecalciferol (vitamin D3) 50 50 mcg PO QPM 01/25/23 01/25/23 Unknown mcg (2,000 unit) capsule (Vitamin D3) cyanocobalamin (vitamin B-12) 1,000 mcg PO QAM 01/25/23 01/25/23 Unknown 1,000 mcg tablet (Vitamin B-12) magnesium 250 mg tablet 250 mg PO HS 01/25/23 01/25/23 Unknown rosuvastatin 5 mg tablet 5 mg PO QAM 01/25/23 01/25/23 Unknown Past Medical History Medical History (Updated 01/27/23 @ 13:55 by Carmen Keller PA-C) Anxiety Chondrocalcinosis of knee Dyslipidemia GERD (gastroesophageal reflux disease) Well controlled and stable History of gastric ulcer No recent issues Hx of cardiac murmur "told a long time ago, but hasn't been mentioned to her recently" no significant murmur noted at 01/27/23 PAT exam Hx of melanoma of skin Mohs procedure above left eye Hx of migraines Hypertension IT band syndrome Lumbar radicular pain Meralgia paresthetica of left side Nasal sinus congestion chronic Sacroiliitis Improved with injections Spinal stenosis of lumbar region Exercise / Class Metabolic Activity II 4-5 Yardwork/Stairs/Walk up hill (one flight of stairs - no chest pain or SOB - uses cane due to hip pain ) Past Family History Family History Mother Breast cancer Aunt Breast cancer Brother Stroke Grandfather No problems noted. Grandfather Lung cancer Other Diabetes Denies family history of Ovarian cancer Prostate cancer Myocardial infarction Colorectal cancer Past Surgical History Surgical History H/O: hysterectomy History of adenoidectomy History of bunionectomy of left great toe History of carpal tunnel surgery of left wrist History of tonsillectomy Hx of melanoma excision Hx of sinus surgery Past Anesthesia History No Hx of Anesthesia Complications and No Family Hx of Anesthesia Complications History of PONV No Hx of PONV and No Hx of Motion Sickness Social History Smoking Status: Never smoker Do You Dip or Chew Tobacco: No Hx Alcohol Use: Yes (hx once in awhile, none for the last few years) Hx Substance Use: No substance use type: does not use Review of Systems - Occ snoring- unsure how often or if apnea occurs- sleeps alone Patient denies chest pain, shortness of breath, dyspnea on exertion, cough, wheezing, palpitations. No hx of seizures, stroke, [place]. No hx of blood clots or blood transfusions Physical Exam Vital Signs VITALS BP 145/77 P 75 TEMP 97.7 SP02 95% RESP 16 Constitutional no acute distress ENMT Mouth: no TMJ clicking Thyromental Distance: > or= 3.5 Finger Breadths Mallampati Class: [employer] to molar Neck neck extension not limited Respiratory normal respiratory effort; no respiratory distress Auscultation: lungs clear to auscultation bilaterally; no wheezes Cardiovascular Rate/Rhythm: regular rate and regular rhythm Heart Sounds: no murmur Vessels: no carotid bruit No significant murmur noted Musculoskeletal Spine: no pain with cervical ROM Extremities: extremities normal to inspection Psychiatric Orientation: alert Lab Results Anesthesia Preop Results Results Anesthesia Widget: WBC 5.71 K/ul (4.8-10.8) 01/27/23 Hgb 13.8 g/dl (12.0-16.0) 01/27/23 Hct 40.4 % (37.0-47.0) 01/27/23 Plt 199 K/uL (130-400) 01/27/23 Na 139 mmol/L (136-145) 01/27/23 K 4.4 mmol/L (3.5-5.1) 01/27/23 Cl 105 mmol/L (98-107) 01/27/23 CO2 28 mmol/L (21-32) 01/27/23 BUN 18 mg/dl (6-23) 01/27/23 Creat 0.67 mg/dl (0.6-1.2) 01/27/23 Glucose Level 105 mg/dl (70-99(Fasting)) H 01/27/23 PT 10.9 Seconds (9.0-12.0) 01/27/23 PTT 25.5 Seconds (21.0-31.0) 01/27/23 INR 1.0 (0.9-1.1) 01/27/23 Blood Type B Positive 01/27/23 Antibody Screen NEGATIVE 01/27/23 Testing Electrocardiogram Date: 01/27/23 Findings: + NSR @ (67bpm) Normal EKG per cardio Chest X-Ray Date: 01/27/23 Findings: + NAD
[~2023-02-08 06:19] MED LIST changes: +ACETAMINOPHEN 500 MG TAB PO SCH; -ALUM-30 PO; -ASCO500T3 PO; -ASPI-390 PO; -CALC-20 PO; -CALC500C3 PO; -CEPH500C PO; -CHLO4TAB70 PO; -CYAN10005 PO; +CeleBREX 200 MG CAP PO SCH; +FAMOTIDINE 20 MG TAB PO SCH; -GARL500T PO; -GLUC1CAP35 PEG; -HERBAL LAXATIVE PO; -HYDR12.56 PO; -LACTTAB7 PO; +LR 500ML BOLUS, THEN 15ML/HR IV SCH; +LR 60ML/HR IV SCH; -MAGN400T6 PO; -MELA5TAB19 PO; +METOCLOPRAMIDE HCL 10 MG TABLET PO SCH; -MULT-506 PO; -OMEG120013 PO; -POTA99TA PO; -SIME1CAP28 PO; +TRANEXAMIC ACID 1,000 MG **IV Intra-op IV SCH; -TRAZ100T29 PO; -VITA1TAB7 PO; -ZNTT/150 PO; -[UNRECOGNIZED DRUG - OTHER] PO; +ceFAZolin 2000MG 2,000 MG/15 ML SYR IV SCH; +dexAMETHasone**PF** 10 MG/ML VIAL IV SCH
[2023-02-08] MEDS ORDERED: BUPIVACAINE 0.5 % 5 MG/1 ML PF 10ML VIAL ONE (06:21)
--- NOTE | 2023-02-08 06:51 | History & Physical Bridge Note ---
Date of Service February 08, 2023 History & Physical Bridge Note I have examined the patient, reviewed the History & Physical and in the interval since the performance of the History & Physical I have noted the following changes of clinical significance: no changes noted
[2023-02-08] MEDS ORDERED: ONDANSETRON INJ 2 MG/ML 2 ML VIAL IV PRN ×2 (07:49→13:00)
[2023-02-08] MEDS ORDERED: fentaNYL citrate PF 100 MCG/2 ML VIAL IV PRN (07:49)
[2023-02-08] MEDS ORDERED: ATROPINE SULFATE 0.1 MG/ML 10ML SYR IV PRN (07:49)
[2023-02-08] MEDS ORDERED: ePHEDrine sulfate 50 MG/ML AMP IV PRN (07:49)
[2023-02-08] MEDS ORDERED: fentaNYL citrate PF 100 MCG/2 ML VIAL ONE (08:08)
[2023-02-08] MEDS ORDERED: MIDAZOLAM HCL 1 MG/ML 2ML VIAL ONE (08:08)
[2023-02-08] MEDS ORDERED: BUPIVACAINE/EPINEPHRINE 0.5% MPF 1:200,000 30 ML VIAL ONE (08:57)
[2023-02-08] MEDS ORDERED: LIDOCAINE 2% 2 ML VIAL/AMP(20MG/ML) INFIL ONE (09:28)
[2023-02-08] MEDS ORDERED: PROPOFOL IV EMULSION 10 MG/ML 20 ML VIAL IV ONE (09:28)
[2023-02-08] MEDS ORDERED: KETOROLAC 30 MG/ML VIAL ONE (09:43)
[2023-02-08] MEDS ORDERED: PHENYLEPHRINE 100MCG/ML 5ML SYR ONE (10:02)
--- NOTE | 2023-02-08 10:53 | Operative Report ---
PG Post Operative Report Pre & Post Diagnosis Operation Date: 02/08/23 08:40 Pre-Op Diagnosis: Osteoarthritis Left Hip Post-Op Diagnosis: Osteoarthritis Left Hip I identified the patient and participated in the time-out.: Yes Procedure Operation Date: 02/08/23 08:40 Actual Procedures p Left Total Hip Arthroplasty(Left) - Marcello Silvestre MD Surgeon Marcello Silvestre MD [employer] Willie Kauffman PA-C Estimated Blood Loss 100 Findings Consistent with Post-Op Diagnosis Operative findings revealed advanced left hip DJD. 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 Moderate-sized joint effusion. Moderate-sized anterior acetabular osteophytes. Moderate-sized medial side osteophyte. Fluids 1000 cc Specimens Left femoral head sent to pathology Drains None Anesthesia Type Spinal MAC Complications none Disposition Accompanied Patient To Recovery: No Indications Patient is an 82-year-old female has had a several year history of increasing left leg pain and discomfort describes gotten worse over time. She is required to use an assistance device to get around due to the pain and a limp. X-rays show advanced left hip DJD. She is some mild to moderate knee DJD with chondrocalcinosis. It was felt that her hip was a major limiting factor and she elected proceed with total hip arthroplasty. Description of Procedure Operative implants consist of: 1. Biomet G7 size 52 mm acetabular shell. 2. 6.5 cancellous acetabular screws 1 at 35 mm length 1 to 20 mm length. 3. Boston hole eliminator. 4. Highly cross-linked polyethylene liner with a 52 mm outer diam and 36 mm inner diameter. 5. DePuy Karaya size 11 KLA femoral stem. 6. +5/36 mm ceramic articular ball. The patient was taken to the operating, identified, and placed on the operating table supine position but all contact areas were appropriately padded. IV antibiotics tried by anesthesia team. A spinal anesthetic had been implemented in the holding area. Courtney catheter was placed in sterile fashion. The patient then placed in the right lateral decubitus position. Axillary roll was placed. A Stulberg hip positioner was used for positioning. The left hip and leg were then prepped and draped in usual sterile fashion. A posterolateral approach to the left hip was then performed to a curvilinear incision centered over the greater trochanter. Sharp dissection was carried through subcutaneous tissue down to level the IT band gluteal fascia. The IT band gluteal fascia were incised longitudinally in line with skin incision. The underlying greater bursa was excised. The piriformis and external rotators along with the posterior hip joint capsule were then released from the posterior aspect hip as a single layer. Great care was taken throughout the procedure protect the sciatic nerve at all times. Hip was internally rotated and dislocat ed. A femoral neck osteotomy cut was made with a Final Cut 10 mm above the lesser trochanter. Femoral head was removed and sent for pathology. The femur was retracted anteriorly. Attention drawn the acetabulum. The acetabular labrum was excised. Pulmonary fat was excised. Sequential reaming the acetabular was then performed again with size 43 and progressing up to 51. I did ream a little bit with a 52 reamer and then placed a 52 mm Biomet G7 acetabular shell in about 40 degrees lateral opening and 20 degrees of anteversion. It was fixed with two 6.5 cancellous acetabular screws. A small anterior osteophyte was removed. Trial liner was placed. Attention drawn the femur. The proximal femur was entered with a cookie cutter followed by canal finder. I then broached beginning size 8 and progressed up to 11. Got excellent fit 11. I then trialed the hip and the +5 articular ball seem to recreate appropriate soft tissue tension and leg lengths. Her hip was completely stable in full extension and external rotation and flexion to 90 degrees internal rotation over [address] I elect to place these implants. All trial implants were removed. Boston hole eliminator was placed. Highly cross-linked polyethylene liner was placed. A size 11 KLA femoral stem was impacted in position. +5/36 mm ceramic articular ball was placed. Hip was located once again found to be stable. Attention drawn toward closing. The wound was irrigated with copious amounts of Betadine solution. The posterior capsule was then repaired through drill holes in the posterior trochanter with #2 Tycron suture. The IT band gluteal fascia then closed in 1 PDS suture running fashion for subcutaneous tissues then closed with 2 layers with a deep layer #1 Vicryl suture and subcutaneous tissue with 2-0 Dexon suture in a buried interrupted fashion. Skin was closed skin geovany. Leg was then cleaned and dried and a sterile dressing with Xeroform, 4 fours, ABD pad, foam tape was applied. The patient was then transferred to the recovery room in stable condition. The patient tolerated the procedure well and there were no complications. Willie Kauffman, my physician anesthesiologist assistant, was present for the entire procedure. His assistance was essential and required for appropriate patient positioning, prepping and draping, surgical exposure, performing the technical details of the operation, placement the implants, closure of the wound, and placement of the sterile bandage. I attest to the content of the Intraoperative Record and any orders documented therein. Any exceptions are noted below.
--- NOTE | 2023-02-08 11:45 | XRay Report ---
XR hip 1V LT w pelvis HISTORY: 82 years-old Female IN PACU - Post Surgical left hip arthroplasty COMPARISON: 01/24/2023 TECHNIQUE: AP view of the pelvis with crosstable lateral view of the left hip FINDINGS: Moderate osteoarthritis of the right hip with chondrocalcinosis. Left hip arthroplasty demonstrates s atisfactory alignment with lateral skin geovany and expected postoperative soft tissue swelling with deep tissue air. No acute fracture, dislocation or unexpected opaque foreign body. IMPRESSION: Left hip arthroplasty with expected postoperative changes. ACT 112: Negative or not required by law. The above report was generated using voice recognition software. It may contain grammatical, syntax o r spelling errors. Electronically signed by: Nikunj Goldsmith M.D. 02/08/2023 11:44 AM
--- NOTE | 2023-02-08 12:43 | Anesthesiology Progress Note ---
Date of Service February 08, 2023 Anesthesia Post Procedure Vital Signs Vital Signs: Temp Pulse Pulse Resp BP Pulse Ox O2 Del Method 02/08/23 12:25 83 14 135/71 94 Room Air 02/08/23 12:10 36.6 C 85 14 144/82 H 95 Room Air 02/08/23 12:00 83 20 136/69 97 Room Air 02/08/23 11:50 81 19 138/65 96 Room Air 02/08/23 11:40 73 18 134/64 99 Room Air 02/08/23 11:30 74 16 136/73 100 Oxymask 02/08/23 11:20 76 15 151/76 H 100 Oxymask 02/08/23 11:10 74 17 135/81 100 Oxymask 02/08/23 11:00 76 23 113/56 L 100 Oxymask 02/08/23 10:50 76 24 122/54 L 100 Oxymask 02/08/23 10:42 36.3 C L 75 16 124/65 98 Oxymask 02/08/23 07:00 36.9 C 71 18 179/88 H 97 Room Air O2 Flow Rate 02/08/23 12:25 02/08/23 12:10 02/08/23 12:00 02/08/23 11:50 02/08/23 11:40 02/08/23 11:30 2 02/08/23 11:20 2 02/08/23 11:10 2 02/08/23 11:00 3 02/08/23 10:50 3 02/08/23 10:42 5 02/08/23 07:00 Pain Intensity Left Hip: Pain Intensity: 1 Transfer of Care Handoff Completed per policy Notes Mental Status: alert / awake / arousable Patient Amnestic to Procedure: Yes Nausea / Vomiting: adequately controlled Pain: adequately controlled Airway Patency, RR, SpO2: stable & adequate BP & HR: stable & adequate Hydration State: stable & adequate Neuraxial Anesthesia: was administered and sensory block is resolving Anesthetic Complications: no major complications apparent and Pt Satisfied with anesthetic care
[2023-02-08] MEDS ORDERED: [UNRECOGNIZED DRUG - OTHER] PO PRN (13:00)
[2023-02-08] MEDS ORDERED: [UNRECOGNIZED DRUG - OTHER] TOP PRN (13:00)
[2023-02-08] MEDS ORDERED: NALOXONE HCL 0.4 MG/1 ML VIAL/CARP IV PRN (13:00)
[2023-02-08] MEDS ORDERED: ALUMINUM/MAGNESIUM SUSP 30 ML UDC PO PRN (13:00)
[2023-02-08] MEDS ORDERED: OXYMETAZOLINE 0.05% 30 ML BTL NAE PRN (13:00)
[2023-02-08] MEDS ORDERED: hydroCHLOROthiazide 25 MG TAB PO PRN (13:00)
[2023-02-08] MEDS ORDERED: MAGNESIUM HYDROXIDE SUSP 30 ML UDC PO PRN (13:00)
[2023-02-08] MEDS ORDERED: METOCLOPRAMIDE HCL INJ 5 MG/ML 2 ML VIAL IV PRN (13:00)
[2023-02-08] MEDS ORDERED: bisacodyL 10 MG SUPP PR PRN (13:00)
[2023-02-08] MEDS ORDERED: HYDROmorphone INJ 0.5 MG/0.5 ML SYR IV PRN (13:00)
[2023-02-08] MEDS ORDERED: ALUM MAG HYDROXIDE SIMETH PO PRN (13:00)
[2023-02-08] MEDS ORDERED: CALCIUM CARBONATE 500 MG CHEWABLE TAB PO PRN (13:19)
[2023-02-08] MEDS ORDERED: ACETAMINOPHEN 500 MG TAB PO SCH (14:00)
[2023-02-08] MEDS: ACETAMINOPHEN 500 MG TAB PO SCH ×2 (14:28→21:21)
[2023-02-08] MEDS: SODIUM CHLORIDE 0.9% 1000ML 1,000 ML IV SCH (14:38)
[2023-02-08] MEDS: ASCORBIC ACID 500 MG TAB PO SCH (15:49)
[2023-02-08] MEDS: KETOROLAC TROMETHAMINE 15 MG/ML VIAL IV SCH ×2 (15:49→21:21)
[2023-02-08] MEDS: ceFAZolin 1000MG 1,000 MG/7.5 ML SYR IV SCH (16:20)
[2023-02-08] MEDS ORDERED: OMEGA-3 (PURIFIED FISH OIL) 1 GM CAP PO SCH (16:30)
[2023-02-08] MEDS ORDERED: TRANEXAMIC ACID / 0.7% NACL 1,000 MG/100 ML BAG IV SCH (16:45)
[2023-02-08] MEDS: traMADol HCL 50 MG TABLET PO PRN (19:38)
[2023-02-08] MEDS ORDERED: NON-FORMULARY MEDICATION (Amino Acids [Amino Acid] Capsule) PO SCH (21:00)
[2023-02-08] MEDS ORDERED: MELATONIN 3 MG TAB PO SCH (21:00)
[2023-02-08] MEDS ORDERED: VITAMIN E MIXED PO SCH (21:00)
[2023-02-08] MEDS ORDERED: HERBAL DRUGS PO SCH (21:00)
[2023-02-08] MEDS ORDERED: MAGNESIUM OXIDE 400 MG TAB PO SCH (21:00)
[2023-02-08] MEDS ORDERED: [UNRECOGNIZED DRUG - OTHER] PO SCH (21:00)
[2023-02-08] MEDS ORDERED: GLUCOSAMINE CHONDROITIN PO SCH (21:00)
[2023-02-08] MEDS ORDERED: ASCORBIC ACID 500 MG TAB PO SCH (21:00)
[2023-02-08] MEDS ORDERED: ADVANCED PROBIOTIC 1250 MG CAPSULE PO SCH (21:00)
[2023-02-08] MEDS ORDERED: CHOLECALCIFEROL 1,000 UNITS 25 MCG TAB PO SCH (21:00)
[2023-02-08] MEDS ORDERED: SENNA 8.6 MG TAB PO SCH ×2 (21:00)
[2023-02-08] MEDS ORDERED: SIMETHICONE 80 MG CHEW PO SCH (21:00)
[2023-02-08] MEDS: ASPIRIN 81 MG ECTAB PO SCH (21:20)
[2023-02-08] MEDS: DOCUSATE SODIUM 100 MG CAP PO SCH (21:21)
[2023-02-08] MEDS: busPIRone 5 MG TAB PO SCH (21:21)
[2023-02-09] MEDS: SODIUM CHLORIDE 0.9% 1000ML 1,000 ML IV SCH (00:10)
[2023-02-09] MEDS: ceFAZolin 1000MG 1,000 MG/7.5 ML SYR IV SCH (00:10)
[2023-02-09] MEDS: KETOROLAC TROMETHAMINE 15 MG/ML VIAL IV SCH ×2 (03:41→10:55)
[2023-02-09] MEDS: ACETAMINOPHEN 500 MG TAB PO SCH (05:31)
[2023-02-09] MEDS ORDERED: dexAMETHasone 10 MG in SYRINGE 0 ML IV SCH (08:00)
[2023-02-09 08:01] LABS: Basophils # (auto) 0.02 K/uL (0-0.2); Basophils % (auto) 0.2 %; Hematocrit (blood only) 33.7 % (37.0-47.0); Hemoglobin 11.9 g/dl (12.0-16.0); Immature Granulocytes # (auto) 0.08 K/uL (0.01-0.20); Immature Granulocytes % (auto) 0.7 %; Lymphocytes # (auto) 1.67 K/uL (1.2-3.4); Lymphocytes % (auto) 13.7 %; Mean Corpuscular Hemoglobin 29.2 pg (25.0-34.0); Mean Corpuscular Hgb Conc 35.3 g/dL (32.0-36.0); Mean Corpuscular Volume 82.8 fL (80.0-100.0); Mean Platelet Volume 10.5 fL (9.4-12.4); Monocytes # (auto) 0.91 K/uL (0.11-0.59); Monocytes % (auto) 7.5 %; Neutrophils % (auto) 77.9 %; Platelet Count 216 K/uL (130-400); RDW Coefficient of Variation 14.1 % (11.5-14.5); RDW Standard Deviation 42.6 fL (36.4-46.3); Red Blood Count 4.07 M/uL (4.20-5.40); White Blood Count 12.18 K/ul (4.8-10.8)
[2023-02-09] MEDS: ASPIRIN 81 MG ECTAB PO SCH (08:08)
[2023-02-09] MEDS: busPIRone 5 MG TAB PO SCH (08:09)
[2023-02-09] MEDS: ASCORBIC ACID 500 MG TAB PO SCH (08:09)
[2023-02-09] MEDS: DOCUSATE SODIUM 100 MG CAP PO SCH (08:09)
[2023-02-09 08:50] LABS: Creatinine Clr Calc Pharmacy 76.7 ml/min; Est GFR (African American) 102.7 ml/min; Est GFR (Non-African American) 88.6 ml/min; Potassium 3.7 mmol/L (3.5-5.1)
[2023-02-09] MEDS ORDERED: ROSUVASTATIN CALCIUM 5 MG TAB PO SCH (09:00)
[2023-02-09] MEDS ORDERED: PANTOprazole 40 MG TAB PO SCH (09:00)
[2023-02-09] MEDS ORDERED: CYANOCOBALAMIN (B-12) 500 MCG TABLET PO SCH (09:00)
[2023-02-09] MEDS ORDERED: MULTIVITAMIN TAB PO SCH ×2 (09:00)
[2023-02-09] MEDS ORDERED: VITAMIN C PO SCH (09:00)
[2023-02-09] MEDS ORDERED: CRANBERRY PO SCH (09:00)
--- NOTE | 2023-02-09 09:49 | Orthopedic Progress Note ---
Date of Service February 09, 2023 Assessment & Plan (1) Status post total hip replacement, left: 82-year-old female postop day 1 from left hip replacement doing well. Plan: 1. DVT prophylaxis including thigh-high teds, and SCDs, aspirin. 2. Pain control doing well with current pain regimen. 3. PT OT. Weight-bear as tolerated. Left total hip protocol. 4. Disposition plan to discharge to her son house and she is going to stay with him and his family for a week at minimum and she will get home health. Subjective . 82-year-old female postop day 1 from a left total hip replacement. She is doing well. Rates her pain at a 2-3/10 at its worst. She has been up walking around doing pretty well. No chest pain or shortness of breath. Not feeling dizzy or lightheaded. Review of Systems All systems reviewed & are unremarkable except as noted in HPI & below. Physical Exam . Physical exam shows a pleasant elderly female. Sitting of her bedside chair talking to her family. Examination left hip reveals dressing clean dry and intact. Leg lengths are equal. Hips located. She is neurologically intact. Respiratory normal respiratory effort, lungs clear to auscultation Cardiovascular RRR, no murmur, no edema Gastrointestinal (Abdomen) normal bowel sounds, soft, nontender, no hepatosplenomegaly Results & Data Results & Data Laboratory Results .Hemoglobin is 11.9. Hematocrit 33.7.Electrolytes are stable. Diagnostic Findings . PG Care Time/CCT Total # of Minutes Spent Total Time Spent with Patient: Total time spent is greater than 50% in coordination of care (as documented) at patient's floor/unit and/or counseling patient: Coding Level of Care Code 99930 Post Operative Follow-Up Diagnoses Status post total hip replacement, left Z96.642
[2023-02-09] MEDS: traMADol HCL 50 MG TABLET PO PRN (11:54)
--- NOTE | 2023-02-11 07:49 | Discharge Summary ---
Date of Service February 11, 2023 Discharge Data Procedures Performed Operation Date: 02/08/23 08:40 Actual Procedures p Left Total Hip Arthroplasty(Left) - Marcello Silvestre MD Hospital Course (1) Status post total hip replacement, left: This is a 82 year old patient admitted on 02/08/23 and underwent total hip arthroplasty. She tolerated the procedure well and there were no complications. Transferred to the PACU post op and later to the orthopedic floor for further care. She was given ancef for antibiotic prophylaxis. She was also given OLLIE stockings, SCDs, and aspirin for DVT prophylaxis. Hemoglobin, hematocrit, and vital signs were monitored during her hospital stay and remained stable. Did not require any blood transfusions. There were no complications during her hospital stay. By post op day #1 the patient was tolerating a regular diet, pain was reasonably controlled with oral pain medicine, and she was participating in physical therapy. On post op day #1 the patient was discharged home and set up with home health care. She was given printed discharge instructions including prescriptions for extra strength tylenol, aspirin, ketorolac, zofran, senokot, and tramadol. Continue hip precautions. Continue physical therapy, weight bearing as tolerated. Continue OLLIE stockings. Follow up approximately 2 weeks post op or sooner if there are problems or concerns. Coding Level of Care Code None Diagnoses Status post total hip replacement, left Z96.642
== END 2023-02-09 13:01 | disposition home health service (06) ==
LOC: ASU 06:19 → 3N 06:19